=== PATIENT | male | born 1965 | race Caucasian/White ===

== ENCOUNTER 2024-01-13 01:06 | Day surgery (SDC) | payer MEDICARE, MEDICAID, SELFPAY ==
[2023-12-30 15:55] VITALS: BMI 27.1
--- NOTE | 2024-01-04 09:02 | PC.NURSE ---
Spoke with patients sister Evelin (with Patients permission) regarding medication ELIQUIS. SHE verbalizes understanding that the last dose of ELIQUIS is to be taken on 01/10/2024 and the Endoscopist will instruct them when to restart after the procedure.
--- NOTE | 2024-01-11 10:29 | PC.NURSE ---
Patient called regarding upcoming procedure. Reviewed preop instructions, appointment times, and procedure prep.
--- NOTE | 2024-01-12 12:16 | P.HP_ITS ---
History of Present Illness History of Present Illness Consent: Risks, benefits, and alternatives have been discussed and questions answered. Patient agrees to proceed with procedure. Chief complaint: neoplasm screening Narrative: David Tarango is a 59 year old male referred for colon cancer screening. there is a family history of colon cancer. He himself had renal cell cancer removed about 6 months ago, following which he developed pulmonary emboli as we ll as bleeding at the surgical site. Review of Systems Review of Systems: All systems reviewed & are unremarkable except as noted in HPI and below PMFSH Past Medical History Medical History BPH (benign prostatic hyperplasia) Chronic low back pain Pulmonary emboli Surgical History Surgical History H/O partial nephrectomy Family History Family History Other Carcinoma of colon Depression Diabetes mellitus Heart disease Hypertension Lung cancer Thyroid disease Social History Social History Smoking status: Never smoker Second hand tobacco smoke exposure: No Alcohol intake: never Substance use: never Substance use type: does not use Lack of Transportation: No Lack of Food: Never True Current Housing: I Have Housing Concerned About Future Housing: No Difficulty Paying Gas/Electric Bills: No Difficulty Paying for Meds: No Currently Unemployed: Decline to Answer Education: High School Diploma/GED Difficulty w/ Childcare or Family Care: No Living arrangements: alone Occupation/Education: other Additional occupation/education comments: on disability Gender identity (if verbalized by the patient): Male Sexual Orientation (if Verbalized by the Patient): Straight or Heterosexual Spiritual care concerns: No Agree to blood products: Yes Meds Home Medications and Allergies Home Medications Medication Instructions Recorded Confirmed Type finasteride 5 mg tablet 5 mg PO DAILY #30 tabs 09/10/23 01/13/24 Rx tamsulosin 0.4 mg capsule (Flomax) 0.4 mg PO QHS #30 caps 09/10/23 01/13/24 Rx apixaban 5 mg tablet (Eliquis) 5 mg PO BID #60 tabs 10/31/23 01/13/24 Rx trazodone 50 mg tablet 50 mg PO QHS insomnia 12/30/23 01/13/24 History Allergies Allergy/AdvReac Type Severity Reaction Status Date / Time No Known Allergies Allergy Mild Verified 01/13/24 06:33 Exam Resp: Auscultation: clear to auscultation bilaterally Cardio: Rate: regular rate Rhythm: regular rhythm GI: GI Palp: Yes Soft to palpation and No Tenderness to palpation present (GI) Assessment and Plan Assessment and plan (1) Colon cancer screening: Code(s): Z12.11 - Encounter for screening for malignant neoplasm of colon Status: Acute Assessment and Plan: Colonoscopy with possible biopsy or polypectomy or cautery or injection of substances.
--- NOTE | 2024-01-13 06:25 | P.PNAN_ITS ---
Anes - Initial Pre Proc Eval Procedure: Operation Date: 01/13/24 07:30 Proposed Procedures p Screening Colonoscopy - David Purdy MD Date/Time: 01/13/24 06:25 Surgeon: David Purdy MD Pre Op Diagnosis: neoplasm screening Patient Data Age: 59 Gender: M Height: 1.83 m Weight: 91 kg Allergies Allergy/AdvReac Type Severity Reaction Status Date / Time No Known Allergies Allergy Mild Verified 12/30/23 15:54 Home Medications Medication Instructions Recorded Confirmed Type finasteride 5 mg tablet 5 mg PO DAILY #30 tabs 09/10/23 12/30/23 Rx tamsulosin 0.4 mg capsule (Flomax) 0.4 mg PO QHS #30 caps 09/10/23 12/30/23 Rx apixaban 5 mg tablet (Eliquis) 5 mg PO BID #60 tabs 10/31/23 12/30/23 Rx trazodone 50 mg tablet 50 mg PO QHS insomnia 12/30/23 12/30/23 History Patient hx anesthesia problems: none Family hx anesthesia problems: none Results Review: All pre-operative results and documents have been reviewed as part of the pre- operative evaluation. [facility] Past Medical History Medical History BPH (benign prostatic hyperplasia) Chronic low back pain Pulmonary emboli Surgical History Surgical History H/O partial nephrectomy Family History Family History Other Carcinoma of colon Depression Diabetes mellitus Heart disease Hypertension Lung cancer Thyroid disease Social History Social History Smoking status: Never smoker Second hand tobacco smoke exposure: No Alcohol intake: never Substance use: never Substance use type: does not use Lack of Transportation: No Lack of Food: Never True Current Housing: I Have Housing Concerned About Future Housing: No Difficulty Paying Gas/Electric Bills: No Difficulty Paying for Meds: No Currently Unemployed: Decline to Answer Education: High School Diploma/GED Difficulty w/ Childcare or Family Care: No Living arrangements: alone Occupation/Education: other Additional occupation/education comments: on disability Gender identity (if verbalized by the patient): Male Sexual Orientation (if Verbalized by the Patient): Straight or Heterosexual Spiritual care concerns: No Agree to blood products: Yes Anes - Eval Final PreProcedure Day of Procedure 01/13/24 06:25 Patient weight: overweight Heart: regular rate and rhythm Lungs: clear to auscultation Airway: Mallampati scale class II Neurological: alert and oriented Last oral intake: >/= 8 hours ASA classification: III Emergent: no Anesthetic plan: proceed Anesthesia type and monitoring: general GIVS and standard monitoring Results Review: All pre-operative results and documents have been reviewed as part of the pre-operative evaluation. Informed Consent: The patient's anesthetic plan and its attendant risks and benefits were discussed with the patient/family/POA. Questions were solicited and answers provided to the satisfaction of the patient/family/POA.
[2024-01-13 06:35] VITALS: BP 126/82; PULSE 71; RESP 18; TEMP 36.6; O2SAT 98
[2024-01-13] MEDS: LACTATED RINGERS 1,000 ML 150 ML IV CONT (06:45)
[2024-01-13 07:54] VITALS: BP 114/81; PULSE 69; RESP 26; O2SAT 97
[2024-01-13 08:04] VITALS: BP 130/80; PULSE 59; RESP 17; O2SAT 99
[2024-01-13 08:14] VITALS: BP 130/81; PULSE 63; RESP 20; O2SAT 99
== END 2024-01-13 08:23 | disposition home or self-care (01) ==
PROVIDERS: PCP Family Medicine; Visit Provider Internal Medicine Gastroenterology
PROC: 0DJD8ZZ Inspection of Lower Intestinal Tract, Via Natural or Artificial Opening Endoscopic (ICD-10-PCS; CPT 45378; principal; 2024-01-13 07:30)
DX: Z12.11 Encounter for screening for malignant neoplasm of colon (principal); C18.7 Malignant neoplasm of sigmoid colon; Z80.0 Family history of malignant neoplasm of digestive organs; Z85.53 Personal history of malignant neoplasm of renal pelvis; Z86.711 Personal history of pulmonary embolism; Z79.01 Long term (current) use of anticoagulants
CPT/HCPCS: 45380; 45385; 45381; 88305; 88313; 88342; J2704; J7120

== ENCOUNTER 2024-02-26 12:11 | Outpatient (CLI) | payer MEDICARE, MEDICAID, SELFPAY ==
--- NOTE | ~2024-02-26 | CT_ITS ---
EXAMINATION: CTA chest PE protocol DATE: 02/26/2024 12:46 INDICATION: Pleurodynia. TECHNIQUE: Computed tomography angiography (CTA) of the chest was performed with 100 mL Omnipaque-350 intravenous contrast timed to evaluate the pulmonary arteries. Coronal maximum intensity projection 3D-reconstructions were created by the technologist. Automated exposure control and iterative reconst ruction technique were employed. The dose-length product was 451.96 mGy-cm. COMPARISON: None. FINDINGS: The lungs demonstrate mild atelectasis. Calcified right lung nodules and calcified right hi lar and mediastinal lymph nodes are consistent with old granulomatous disease. No pleural effusion. T he heart size is normal. No pericardial effusion. There is no pulmonary embolus. There are embolizati on coils in right kidney. There are changes of partial right nephrectomy with perinephric hematoma ve rsus fat necrosis. There is thoracic dextroscoliosis. There is mild chronic anterior wedging of multi ple thoracic vertebral bodies. IMPRESSION: 1. No pulmonary embolus. Reviewed, dictated and finalized at location A. IMPRESSION: 1. No pulmonary embolus.
[2024-02-26 12:43] LABS: Estimated Glomerular Filt Rate > 60
== END 2024-02-26 12:12 | disposition home or self-care (01) ==
PROVIDERS: PCP Family Medicine; Visit Provider Family Medicine
DX: R07.81 Pleurodynia (principal); Z86.711 Personal history of pulmonary embolism; C20 Malignant neoplasm of rectum; Z85.528 Personal history of other malignant neoplasm of kidney
CPT/HCPCS: 71275; Q9967

== ENCOUNTER → 2024-08-09 11:38 | Outpatient (REF) | payer MEDICARE, MEDICAID, SELFPAY | LOC: ANHLAB 11:38 | PROVIDERS: PCP Family Medicine; Visit Provider Plastic Surgery | DX: D22.22 Melanocytic nevi of left ear and external auricular canal (principal) | CPT/HCPCS: 88305 ==

== ENCOUNTER 2024-09-15 12:17 | Outpatient (CLI) | payer MEDICARE, MEDICAID, SELFPAY ==
--- NOTE | ~2024-09-15 | PE_ITS ---
EXAMINATION: PET skull to mid thigh DATE: 09/15/2024 14:48 INDICATION: Lung nodule. Other specified personal risk factor. TECHNIQUE: Blood glucose level was 119 mg/dL. 9.779 mCi of 18-fluorodeoxyglucose (18-FDG) was adminis tered i.v. Low dose computed tomography (CT) images were acquired from the base of the brain to the p roximal thighs for attenuation correction and anatomic localization. Automated exposure control was e mployed. Dose-length product (DLP) was 1126 mGy-cm. Positron emission tomography (PET) images were ac quired in the same distribution. COMPARISON: Chest CT 02/26/2024 FINDINGS: Head/neck: There are no pathologically enlarged lymph nodes. Chest: The lungs demonstrate mild atelectasis. Calcified right hilar and mediastinal lymph nodes are consistent with old granulomatous disease. No pleural effusion. The heart size is normal. No pericard ial effusion. There is a fracture of right eighth rib with callus formation and increased activity. Abdomen/pelvis/proximal thighs: The liver, gallbladder, spleen, pancreas, and right adrenal gland are normal. There is a 19 mm mass in left adrenal gland measuring low attenuation, consistent with an ad enoma. Left kidney is normal. There are changes of partial right nephrectomy with chronic fat necrosi s adjacent to the right kidney. There are embolization coils at the hilum of the right kidney. The pr ostate is moderately enlarged. There is a left inguinal hernia containing fat. There is an anastomosi s in the sigmoid colon. There are no dilated loops of bowel. There are no pathologically enlarged lym ph nodes. There is no free intraperitoneal fluid. There is no osseous malignancy. IMPRESSION: 1. No specific evidence of malignancy. 2. Healing right eighth rib fracture. Reviewed, dictated and finalized at location B.
[2024-09-15 12:35] LABS: Glucose Point of Care 119 mg/dl (65-105)
== END 2024-09-15 12:18 | disposition home or self-care (01) ==
PROVIDERS: PCP Family Medicine; Visit Provider Family Medicine
DX: R91.1 Solitary pulmonary nodule (principal); N28.89 Other specified disorders of kidney and ureter; Z91.89 Other specified personal risk factors, not elsewhere classified; S22.31XD Fracture of one rib, right side, subsequent encounter for fracture with routine healing; X58.XXXD Exposure to other specified factors, subsequent encounter
CPT/HCPCS: 78815; A9552

== ENCOUNTER 2025-01-25 13:00 | Outpatient (CLI) | payer MEDICARE, MEDICAID, SELFPAY ==
--- NOTE | ~2025-01-25 | CT_ITS ---
CT Scan of the Chest without Contrast: Clinical Indication: Pulmonary nodule Technique: Contiguous sections were acquired throughout the chest without intravenous contrast. Dose reduction technique was used on this scan by utilizing automated exposure control and iterative recon struction technique. The dose-length product (DLP) was 282.36 mGy-cm. COMPARISON: 11/25/2024 Findings: There is no evidence of any significant mediastinal, hilar or axillary lymphadenopathy. The mediastin al soft tissues appear normal. There is no evidence of pleural or pericardial effusion. Grouped small groundglass nodules in the right middle lobe are similar to prior exam. Images through the upper abdomen reveal stable left adrenal adenoma. Stable probable postoperative ch jay of the right kidney, incompletely evaluated on noncontrast exam. Stable mild compression deformi ties of T8 and T12. Impression: Stable grouped subcentimeter groundglass nodules in the right middle lobe, which could reflect focal infectious/inflammatory process. Reviewed, dictated and finalized at location . Impression: Stable grouped subcentimeter groundglass nodules in the right middle lobe, whic h could reflect focal infectious/inflammatory process.
--- OUTSIDE RECORDS SUMMARY | 2025-01-25 14:23 | XMS_ITS | Clinical Summary ---
Author Organization [facility] Address [address] [place] [address] Care Team Providers Care Media Marketing Specialist Name Role Phone Shefali Gavin MD Primary Care Provider [phone] Allergies No known active allergies Medications finasteride (PROSCAR) 5 MG tablet Take 1 tablet (5 mg total) by mouth daily. 08/05/2024 Active tamsulosin (FLOMAX) 0.4 MG Cap Take 1 capsule (0.4 mg total) by mouth nightly at bedtime. 08/04/2024 Active Active Problems Problem Noted Date Diagnosed Date Nausea and vomiting 05/31/2023 Nocturia 11/18/2019 Degenerative joint disease of foot 11/05/2017 Hyperlipidemia 08/04/2017 Vitamin B12 deficiency 04/05/2017 Cervicalgia 09/25/2016 Bulging lumbar disc 06/03/2016 Lumbar radiculopathy 06/03/2016 Neuropathy 03/12/2016 Gastroesophageal reflux disease 02/12/2016 Family History Medical History Relation Comments Diabetes type II Father Heart Disease, Lung Cancer Mother Relation Status Comments Father Mother Social History Tobacco Use Types Packs/Day Years Used Date Smoking Tobacco: Never Smokeless Tobacco: Never Tobacco Cessation:Counseling Given: Not Answered Alcohol Use Standard Drinks/Week Comments No 0 (1 standard drink = 0.6 oz pur e alcohol) Humiliation, Afraid, Rape, and Kick questionnair e Answer Date Recorded Within the last year, have y ou been afraid of your partner or ex-partner? No 06/01/2023 Within the last year, have y ou been humiliated or emotionally abused in other ways by your partner or ex-partner? No Within the last year, have y ou been kicked, hit, slapped, or otherwise physically hurt by your partner or ex-partner? No 06/01/2023 Within the last year, have y ou been raped or forced to have any kind of sexual activity by your partner or ex-partner? No 06/01/2023 AUDIT-C Answer Date Recorded Frequency of Alcohol Consumption Never 11/18/2019 Average Number of Drinks Not on file 020 Frequency of Binge Drinking Not on file 01/2020 Overall Financial Resource Strain (CARDIA) Answe r Date Recorded How hard is it for you to pa y for the very basics like food, housing, medical care, and heating? Not hard at all 06/01/2023 [facility] [place] of Occupat ional Health - Occupational Stress Questionnaire Answer Date Recorded Do you feel stress - tense, restless, nervous, or anxious, or unable to sleep at night because your mind is troubled all the time - these days? Only a little 06/01/2023 Hunger Vital Sign Answer Date Recorded Within the past 12 months, y ou worried that your food would run out before you got the money to buy more. Never true 06/01/20 23 Within the past 12 months, t he food you bought just didn't last and you didn't have money to get more. Never true 06/01/2023 PRAPARE - Transportation Answer Date Re corded In the past 12 months, has l ack of transportation kept you from medical appointments or from getting medications? No 05/16 In the past 12 months, has l ack of transportation kept you from meetings, work, or from getting things needed for daily living? No 06/01/2023 Housing Stability Vital Sign Answer Evgeny e Recorded In the last 12 months, was t here a time when you were not able to pay the mortgage or rent on time? No 06/01/2023 In the last 12 months, how many places have you lived? 1 06/01/2023 In the last 12 months, was t here a time when you did not have a steady place to sleep or slept in a retirement (including now)? No 06/01/2023 Housing Stability Vital Sign Answer Evgeny e Recorded In the last 12 months, was t here a time when you were not able to pay the mortgage or rent on time? No 06/01/2023 Number of Times Moved in the Last Year Not on fi le 06/01/2023 Homeless in the Last Year Not on file 2022 Education Answer Date Recorded What is the highest level of school you have completed or the highest degree you have received? High school graduate 11/18/2019 Sex and Gender Information Value Date Recorded Sex Assigned at Not on file Legal Sex Male 6:44 PM CDT Gender Identity Not on file Sexual Orientation Not on file Last Filed Vital Signs Vital Sign Reading Time Taken Comments Blood Pressure 135/90 08/29/2024 12:00 PM CDT Pulse 65 08/29/2024 12:00 PM CDT Temperature 36.4 C (97.6 F) 08/29/2024 12:00 PM CDT Respiratory Rate 16 08/29/2024 12:0 0 PM CDT Oxygen Saturation 97% 08/29/2024 12: 00 PM CDT Inhaled Oxygen Concentration - - Weight 90.2 kg (198 lb 13.7 oz) 08/29/2024 8:53 AM CDT Height 182.9 cm (6') 08/29/2024 8:53 AM CDT Body Mass Index 26.97 08/29/2024 8:53 AM CDT Plan of Treatment Health Maintenance Due Date Last Done Comments Colorectal Cancer Screening Colonoscopy (10 Years) 1964 Annual Physical 1967 Hepatitis C 1982 DTaP, Tdap and Td Vaccines ( 1 - Tdap) 1983 Zoster Vaccines (1 of 2) 2014 COVID-19 Vaccine ( - 2023-2 5 season) 2024 Influenza Adult (#1) 2024 RSV Immunization or 60+ Years (1 - 1-dose 75+ series) 2039 Meningococcal B Vaccine Aged Out No l onger eligible based on patient's age to complete this topic Meningococcal Vaccine Aged Out No jaime reji eligible based on patient's age to complete this topic Pneumococcal Vaccine: Pediat rics (0 to 5 Years) and At-Risk Patients (6 to 64 Years) Aged Out No longer eligible b ased on patient's age to complete this topic RSV Immunizations Under 20 Months Aged Out No longer eligible based on patient's age to complete this topic Goals Goal Patient Goal Type Associated Problems Recent Progress Patient-Stated? Author Patient will return to prior living situation and remain independent in ADLs upon discharge from hospital Lifestyle Cris Marinelli, RN Insurance MEDICAID [employer] Advance Directives * Full Code (Latest Code Status on File) Date Activated Date Inactivated Comments 05/31/2023 5:26 PM 06/02/2023 10:20 PM Care Teams Media Marketing Specialist Relationship Specialty Start Date End Date Shefali Gavin MD [address] [place] [address] PCP - General FAMILY PRACTICE 06/19/23
--- OUTSIDE RECORDS SUMMARY | 2025-01-25 14:23 | XMS_ITS | Clinical Summary ---
Author Organization [facility] Address [address] [place] [address] Care Team Providers Care Director Phone Name Role Phone Shefali Gavin MD Primary Care Provider [phone] Source Comments [facility],non-owned Affiliates and Associated Physician Practices is amultiple site organization consisting of ambulatory clinics and hospital sitesin [place], [place], [place] and [place]. This disclosure is being madepursuant to the Care Everywhere program and may not contain all information available regarding this patient. Last updated 18.[facility] Allergies No known active allergies Medications * Be aware that medications may not be up to date on this document. Alwaysverify current medications with the patient. Medication Sig Dispensed Refills Start Date End Date Status tamsulosin (Flomax) 0.4 MG capsule Take 1 (one) capsule by mouth at bedtime 07/04/2023 Active finasteride (Proscar) 5 MG tablet Take 1 (one) tablet by mouth once daily 07/04/2023 Active pantoprazole EC (Protonix) 40 MG tablet Take 1 (one) tablet by mouth once daily for 30 days 30 tablet 09/02/2023 Active traZODone (Desyrel) 50 MG tablet TAKE 1 TABLET BY MOUTH EVERY DAY AT BEDTIME NEEDED FOR INSOMNIA 04/07/2024 Active senna (Senokot) 8.6 MG tablet Take 1 (one) tablet by mouth once daily 30 tablet 06/17/2024 Active docusate sodium (Colace) 50 MG capsule Take 1 (one) capsule by mouth once daily 30 capsule 06/17/2024 Active cyclobenzaprine (Flexeril) 10 MG tablet Take 1 (one) tablet by mouth 3 times daily as needed for Muscle Spasms 30 tablet 06/17/2024 Active ketorolac (Toradol) 10 MG tablet Take 1 (one) tablet by mouth every 6 hours as needed for Pain 30 tablet 06/17/2024 Active amLODIPine (Norvasc) 5 MG tablet Take 1 (one) tablet by mouth once daily 60 tablet 06/17/2024 Active Active Problems Problem Noted Date Diagnosed Date Cancer of sigmoid colon 06/08/2024 Clear cell carcinoma of right kidney 08/31/2023 Multiple subsegmental pulmon lynnette emboli without acute cor pulmonale 08/23/2023 Post-operative hemoglobin drop 08/21/2023 Intra-abdominal bleeding 08/21/2023 Anemia associated with acute blood loss 08/21/20 23 Renal mass 08/20/2023 Nocturia 11/18/2019 08/23/2023 Hyperlipidemia 08/04/2017 08/23/2023 Backache 09/25/2016 Neck pain 09/25/2016 Lumbar radiculopathy 06/03/2016 08/23/2023 Neuropathy 03/12/2016 08/23/2023 Gastroesophageal reflux disease 02/12/2016 08/23/2023 Family History Medical History Relation Name Comments Cancer - Colon Father Cancer - Lung Mother Relation Name Status Comments Father Mother Social History Tobacco Use Types Packs/Day Years Used Date Smoking Tobacco: Never Smokeless Tobacco: Never Tobacco Cessation:Counseling Given: No Alcohol Use Standard Drinks/Week Comments Not Currently 0 (1 standard drink = 0.6 oz pur e alcohol) AUDIT-C Answer Date Recorded Q1: How often do you have a drink containing alcohol? Never 06/08/2024 Q2: How many drinks containi ng alcohol do you have on a typical day when you are drinking? Patient does not drink Q3: How often do you have si x or more drinks on one occasion? Never 06/08/2024 Overall Financial Resource Strain (CARDIA) Answe r Date Recorded How hard is it for you to pa y for the very basics like food, housing, medical care, and heating? Patient declined 06/08/2024 [facility] of Occupat ional Health - Occupational Stress Questionnaire Answer Date Recorded Do you feel stress - tense, restless, nervous, or anxious, or unable to sleep at night because your mind is troubled all the time - these days? Patient declined 06/08/2024 Hunger Vital Sign Answer Date Recorded Within the past 12 months, y ou worried that your food would run out before you got the money to buy more. Patient declined Within the past 12 months, t he food you bought just didn't last and you didn't have money to get more. Patient declined PRAPARE - Transportation Answer Date Re corded In the past 12 months, has l ack of transportation kept you from medical appointments or from getting medications? Patient declined 06/08/2024 In the past 12 months, has l ack of transportation kept you from meetings, work, or from getting things needed for daily living? Patient declined 06/08/2024 Housing Stability Vital Sign Answer Evgeny e Recorded In the last 12 months, was t here a time when you were not able to pay the mortgage or rent on time? Patient declined 06/08/20 In the last 12 months, how many places have you lived? 1 06/08/2024 In the last 12 months, was t here a time when you did not have a steady place to sleep or slept in a fci (including now)? Patient declined 06/08/2024 Sex and Gender Information Value Date Recorded Sex Assigned at Not on file Gender Identity Not on file Sexual Orientation Not on file Last Filed Vital Signs Vital Sign Reading Time Taken Comments Blood Pressure 125/87 09/08/2024 12:50 PM CDT Pulse 79 09/08/2024 12:50 PM CDT Temperature 36.3 C (97.3 F) 09/08/2024 12:50 PM CDT Respiratory Rate 18 09/08/2024 12:50 PM CDT Oxygen Saturation 98% 09/08/2024 12:50 PM CDT Inhaled Oxygen Concentration - - Weight 90.3 kg (199 lb) 09/08/2024 12:50 PM CDT Height 182.9 cm (6') 09/08/2024 12:50 PM CDT Body Mass Index 26.99 09/08/2024 12:50 PM CDT Plan of Treatment Health Maintenance Due Date Last Done Comments COLOGUARD (AGES 45-75) - COLON CA SCREENING 1964 COLON MONITORING 1964 COLONOSCOPY - COLON CA SCREENING 1964 CT COLONOGRAPHY - COLON CA SCREENING 1964 Colorectal Cancer Screening 1964 FIT - COLON CA SCREENING 1964 FLEX SIG - COLON CA SCREENING 1964 LIPID TESTING 1964 HIV SCREENING 1979 HEPATITIS C SCREENING 01/01/1982 DTAP/TDAP/TD VACCINES (1 - Tdap) 1983 PNEUMOCOCCAL VACCINE 50+ (1 of 1 - PCV) 2014 ZOSTER VACCINE (1 of 2) 2014 COVID-19 VACCINE (1 - 2023- season) 2024 INFLUENZA VACCINE (#1) 2024 DEPRESSION SCREENING 11/16/2024 MEDICARE AWV CALENDAR YEAR 2024 SCREENING FOR DIABETES 06/17/2027 , 06/16/2024, 06/15/2024, Additional history exists Respiratory Syncytial Virus (RSV) Vaccine Pt: or over 60 yrs (1 - 1-dose 75+ series) 2039 HEPATITIS B VACCINE Aged Out No longe r eligible based on patient's age to complete this topic HIB VACCINE Aged Out No longer eligi ble based on patient's age to complete this topic HPV VACCINE Aged Out No longer eligi ble based on patient's age to complete this topic MENINGOCOCCAL (Group B) VACCINE SHARED DECISION-MAKING Aged Out No longer eligible based on patient's age to complete this topic MENINGOCOCCAL GROUPS A/C/Y/W VACCINE Aged Out No longer eligible based on patient's age to complete this topic Procedures Procedure Name Priority Date/Time Associated Diagnosis Comments BASIC METABOLIC PANEL (CALCIUM TOTAL) AM Draw 06/17/2024 12:11 AM CDT from Last 3 Months or Most Recently Relevant to Health Maintenance Results * (ABNORMAL) BASIC METABOLIC PANEL (CALCIUM TOTAL) (06/17/2024 12:11 AM CDT) BUN 22 7 - 26 mg/dL 06/17/2024 1:58 AM CDT [facility] Creatinine 0.94 0.71 - 1.16 mg/dL 06/17/2024 1:58 AM CDT [facility] Sodium 135(L) 136 - 145 mmol/L 06/17/2024 1:58 AM [facility] Potassium 3.4(L) 3.5 - 4.5 mmol/L 06/17/2024 1:58 AM [facility] Chloride 103 98 - 107 mmol/L 06/17/2024 1:58 AM [facility] CO2 24 22 - 29 mmol/L 06/17/2024 1:58 AM [facility] Glucose 132(H) 70 - 115 mg/dL 06/17/2024 1:58 AM [facility] Calcium 8.6 8.4 - 10.2 mg/dL 06/17/2024 1:58 AM [facility] Anion Gap 8 6 - 16 06/17/2024 1:58 AM [facility] BUN/Creatinine Ratio 23 7 - 23 06/17/2024 1:58 AM [facility] Osmolality Calculated 285 275 - 295 mOsm/kg 06/17/2024 1:58 AM [facility] eGFR by CKD-EPI >90 >=90 mL/min/1.7 3 m2 06/17/2024 1:58 AM [facility] Blood BLOOD SPECIMEN / Unknown Lab Venipuncture / Unknown 06/17/2024 12:11 AM CDT 06/17/2024 1:[address] 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
--- OUTSIDE RECORDS SUMMARY | 2025-01-25 14:23 | XMS_ITS | Encounter Summary ---
Author Organization [facility] Address [address] [place] [address] Care Team Providers Care Licensed Electrician Name Role Phone Shefali Gavin MD Primary Care Provider [phone] Reason for Visit * Reason Comments Med Change Request Encounter Details Date Type Department Care Team (Late st Contact Info) Description 06/17/2024 Refill [facility] [address] [place] [id number] Marian Andrade MD [address] [facility] [address] [place] [id number] Med Change Request Social History Tobacco Use Types Packs/Day Years Used Date Smoking Tobacco: Never Smokeless Tobacco: Never Alcohol Use Standard Drinks/Week Comments Not Currently [...] medical care, and heating? Patient declined 06/08/2024 [facility] [place] of Occupat ional Health - Occupational Stress [...] on file Sexual Orientation Not on file documented as of this encounter Functional Status Functional Status Response Date of Assess ment Is person deaf or have serious hearing difficult y? No 06/08/2024 Is person blind or have serious difficulty seein g? No 06/08/2024 Does person have serious dif ficulty walking/climbing stairs? No 06/08/2024 Does person have difficulty dressing/bathing? No 06/08/2024 Does person have difficulty doing errands alone? No 06/08/2024 Cognitive Status Response Date of Assessm ent Does person have difficulty concentrating/remembering/making decisions? No 06/08/2024 documented as of this encounter Plan of Treatment Not on file documented as of this encounter Visit Diagnoses Not on filedocumented in this encounter Care Teams Licensed Electrician Relationship Specialty Start Date End Date Shefali Gavin MD [address] [place] [address] PCP - General Family Medicine 07/15/23 documented as of this encounter
--- OUTSIDE RECORDS SUMMARY | 2025-01-25 14:23 | XMS_ITS ---
Author Organization [facility] Address [address] [facility] [place] [address] Care Team Providers Care Project Designer Name Role Phone Shefali Gavin MD Primary Care Provider [phone] Active Problems Problem Noted Date Diagnosed Date [...] 03/12/2016 08/23/2023 Gastroesophageal reflux disease 02/12/2016 08/23/2023 Current Oncology Plans No current plan information found. Past Plans No past plan information found. Radiation Treatments * No radiation treatments are documented for this patient in [facility]. Treatments may have been administered in another system. Lifetime Dose Tracking * Chemical Lifetime Dose Automatic Entry Manual Entr y Dose Length Product 6,829.36 mGy-cm 6,829.36 mGy-cm 0 mGy-cm
--- OUTSIDE RECORDS SUMMARY | 2025-01-25 14:23 | XMS_ITS | Referral Summary ---
Author Organization [facility] [employer] Address [address] [facility] [place] [address] Care Team Providers Care Bag Sealer Name Role Phone Shefali Gavin MD Primary Care Provider [phone] Source Comments [facility] [employer],non-owned Affiliates and Associated Physician Practices is amultiple site organization consisting of ambulatory clinics and hospital sitesin [place], [place], [place] and [place]. This disclosure is being madepursuant to the Care Everywhere program and may not contain all information available regarding this patient. Last updated 18.[facility] [employer] Allergies No known active allergies Medications * [...] 03/12/2016 08/23/2023 Gastroesophageal reflux disease 02/12/2016 08/23/2023 Social History Tobacco Use Types Packs/Day Years [...] medical care, and heating? Patient declined 06/08/2024 [facility] [place] of Occupat ional Health - Occupational Stress [...] or slept in a retirement (including now)? Patient declined 06/08/2024 Sex and [...] Mass Index 26.99 09/08/2024 12:50 PM CDT Functional Status Functional Status Response Date of [...] person have difficulty concentrating/remembering/making decisions? No 06/08/2024 Plan of Treatment Not on file Procedures Procedure Name Priority Date/Time Associated Diagnosis Comments BASIC METABOLIC PANEL (CALCIUM TOTAL) AM Draw 06/17/2024 12:11 AM CDT from Last 3 Months or Most Recently Relevant to Health Maintenance Results * (ABNORMAL) BASIC METABOLIC PANEL (CALCIUM TOTAL) (06/17/2024 12:11 AM CDT) BUN 22 7 - 26 mg/dL 06/17/2024 1:58 AM [facility] Creatinine 0.94 0.71 - 1.16 mg/dL 06/17/2024 1:58 AM [facility] Sodium 135(L) 136 - 145 mmol/L 06/17/2024 1:58 AM [facility] Potassium 3.4(L) 3.5 - 4.5 mmol/L 06/17/2024 1:58 AM [facility] Chloride 103 98 - 107 mmol/L 06/17/2024 1:58 AM [facility] CO2 24 22 - 29 mmol/L 06/17/2024 1:58 AM [facility] Glucose 132(H) 70 - 115 mg/dL 06/17/2024 1:58 AM [facility] Calcium 8.6 8.4 - 10.2 mg/dL 06/17/2024 1:58 AM [facility] Anion Gap 8 6 - 16 06/17/2024 1:58 AM [facility] BUN/Creatinine Ratio 23 7 - 23 06/17/2024 1:58 AM [facility] Osmolality Calculated 285 275 - 295 mOsm/kg 06/17/2024 1:58 AM [facility] eGFR by CKD-EPI >90 >=90 mL/min/1.7 3 m2 06/17/2024 1:58 AM [facility] Blood BLOOD SPECIMEN / Unknown Lab Venipuncture / Unknown 06/17/2024 12:11 AM CDT 06/17/2024 1:28 AM CDT Brenda Peterson MD LAB - CHEMISTRY OR DERABLES [facility] [address] [place] [address], [facility] [phone] from Last 3 Months or Most Recently Relevant to Health Maintenance Advance Directives Documents on File Type Date Recorded 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
--- OUTSIDE RECORDS SUMMARY | 2025-01-25 14:23 | XMS_ITS | Patient Health Summary ---
Author Organization [facility] Address [address] [place] [address] Care Team Providers Care Loan Funder Name Role Phone Shefali Gavin MD Primary Care Provider [phone] Note from [facility],non-owned Affiliates and Associated Physician Practices is amultiple site organization consisting of ambulatory clinics and hospital sitesin [place], [place], [place] and [place]. This disclosure is being madepursuant to the Care Everywhere program and may not contain all information available regarding this patient. Last updated 18.[facility] Allergies No known active allergies Medications * Be aware that medications may not be up to date on this document. Alwaysverify current medications with the patient. * tamsulosin (Flomax) 0.4 MG capsule(Started 07/04/2023) Take 1 (one) capsule by mouth at bedtime * finasteride (Proscar) 5 MG tablet(Started 07/04/2023) Take 1 (one) tablet by mouth once daily * pantoprazole EC (Protonix) 40 MG tablet(Started 09/02/2023) Take 1 (one) tablet by mouth once daily for 30 days * traZODone (Desyrel) 50 MG tablet(Started 04/07/2024) TAKE 1 TABLET BY MOUTH EVERY DAY AT BEDTIME NEEDED FOR INSOMNIA * senna (Senokot) 8.6 MG tablet(Started 06/17/2024) Take 1 (one) tablet by mouth once daily * docusate sodium (Colace) 50 MG capsule(Started 06/17/2024) Take 1 (one) capsule by mouth once daily * cyclobenzaprine (Flexeril) 10 MG tablet(Started 06/17/2024) Take 1 (one) tablet by mouth 3 times daily as needed for Muscle Spasms * ketorolac (Toradol) 10 MG tablet(Started 06/17/2024) Take 1 (one) tablet by mouth every 6 hours as needed for Pain * amLODIPine (Norvasc) 5 MG tablet(Started 06/17/2024) Take 1 (one) tablet by mouth once daily Active Problems Problem Noted Date Diagnosed Date [...] medical care, and heating? Patient declined 06/08/2024 [facility] - Occupational Stress [...] or rent on time? Patient declined 06/08/20 24 In the last 12 months, how many places have you lived? 1 06/08/2024 In the last 12 months, was t here a time when you did not have a steady place to sleep or slept in a detention (including now)? Patient declined 06/08/2024 Sex and [...] Mass Index 26.99 09/08/2024 12:50 PM CDT Procedures * PHOSPHORUS BLOOD(Performed 06/17/2024) * MAGNESIUM BLOOD(Performed 06/17/2024) * BASIC METABOLIC PANEL (CALCIUM TOTAL)(Performed 06/17/2024) * CBC W AUTO DIFFERENTIAL(Performed 06/17/2024) * PHOSPHORUS BLOOD(Performed 06/16/2024) * MAGNESIUM BLOOD(Performed 06/16/2024) * BASIC METABOLIC PANEL (CALCIUM TOTAL)(Performed 06/16/2024) * CBC W AUTO DIFFERENTIAL(Performed 06/16/2024) * PHOSPHORUS BLOOD(Performed 06/15/2024) * MAGNESIUM BLOOD(Performed 06/15/2024) * BASIC METABOLIC PANEL (CALCIUM TOTAL)(Performed 06/15/2024) * CBC W AUTO DIFFERENTIAL(Performed 06/15/2024) * CT ABDOMEN PELVIS W CONTRAST(Performed 06/14/2024) Performed for Cancer of sigmoid colon (HCC) * PHOSPHORUS BLOOD(Performed 06/14/2024) * MAGNESIUM BLOOD(Performed 06/14/2024) * BASIC METABOLIC PANEL (CALCIUM TOTAL)(Performed 06/14/2024) * CBC W AUTO DIFFERENTIAL(Performed 06/14/2024) * XR ABDOMEN KUB PORTABLE(Performed 06/13/2024) Performed for Cancer of sigmoid colon (HCC) * PHOSPHORUS BLOOD(Performed 06/13/2024) * MAGNESIUM BLOOD(Performed 06/13/2024) * BASIC METABOLIC PANEL (CALCIUM TOTAL)(Performed 06/13/2024) * CBC W AUTO DIFFERENTIAL(Performed 06/13/2024) * PHOSPHORUS BLOOD(Performed 06/12/2024) * MAGNESIUM BLOOD(Performed 06/12/2024) * BASIC METABOLIC PANEL (CALCIUM TOTAL)(Performed 06/12/2024) * CBC W AUTO DIFFERENTIAL(Performed 06/12/2024) * XR ABDOMEN KUB PORTABLE(Performed 06/11/2024) Performed for Cancer of sigmoid colon (HCC) * PHOSPHORUS BLOOD(Performed 06/11/2024) * MAGNESIUM BLOOD(Performed 06/11/2024) * BASIC METABOLIC PANEL (CALCIUM TOTAL)(Performed 06/11/2024) * CBC W AUTO DIFFERENTIAL(Performed 06/11/2024) * XR ABDOMEN KUB PORTABLE(Performed 06/11/2024) Performed for Cancer of sigmoid colon (HCC) * XR ABDOMEN KUB PORTABLE(Performed 06/10/2024) Performed for Cancer of sigmoid colon (HCC) * MAGNESIUM BLOOD(Performed 06/10/2024) * RENAL FUNCTION PANEL(Performed 06/10/2024) * CBC W/O DIFFERENTIAL(Performed 06/10/2024) * PT EVAL AND TREAT(Performed 06/09/2024) * OT EVAL AND TREAT(Performed 06/09/2024) * PHOSPHORUS BLOOD(Performed 06/09/2024) Performed for Cancer of sigmoid colon (HCC) * MAGNESIUM BLOOD(Performed 06/09/2024) Performed for Cancer of sigmoid colon (HCC) * BASIC METABOLIC PANEL (CALCIUM TOTAL)(Performed 06/09/2024) Performed for Cancer of sigmoid colon (HCC) * CBC W AUTO DIFFERENTIAL(Performed 06/09/2024) Performed for Cancer of sigmoid colon (HCC) * OT EVAL AND TREAT(Performed 06/08/2024) * PT EVAL AND TREAT(Performed 06/08/2024) * PATHOLOGY TISSUE(Performed 06/08/2024) Performed for Cancer of sigmoid colon (HCC) * PERIPHERAL IV NOTE(Performed 06/08/2024) * ENDOTRACHEAL TUBE NOTE(Performed 06/08/2024) * IL CLAM SHOVEL OPERATOR RQR USE ROBOTIC SURG SYS(Performed 06/08/2024) Performed for Cancer of sigmoid colon (HCC) * TYPE + SCREEN PANEL(Performed 06/08/2024) Performed for Pre-op evaluation * TYPE + SCREEN PANEL(Performed 05/27/2024) Performed for Pre-op evaluation * CBC W AUTO DIFFERENTIAL(Performed 05/27/2024) Performed for Pre-op evaluation * BASIC METABOLIC PANEL (CALCIUM TOTAL)(Performed 05/27/2024) Performed for Pre-op evaluation * CULTURE URINE(Performed 05/27/2024) Performed for Right renal mass, Pre-op testing * IL SIGMOIDOSCOPY,DIAGNOSTIC(Performed 05/06/2024) Performed for Rectal cancer (HCC) * ENDOSCOPY, PROCTOSIGMOID(Performed 05/06/2024) * MRI PELVIS WWO CONTRAST(Performed 03/31/2024) Performed for Rectal cancer (HCC) * CT CHEST ABDOMEN W CONTRAST(Performed 03/31/2024) Performed for Rectal cancer (HCC) * CREATININE - POCT INTERFACED(Performed 03/31/2024) * CARDIAC RHYTHM STRIP ORDER(Performed 09/02/2023) * BASIC METABOLIC PANEL (CALCIUM TOTAL)(Performed 09/01/2023) Performed for Renal mass * CBC W AUTO DIFFERENTIAL(Performed 09/01/2023) Performed for Renal mass * MAGNESIUM BLOOD(Performed 08/31/2023) * BASIC METABOLIC PANEL (CALCIUM TOTAL)(Performed 08/31/2023) Performed for Renal mass * CBC W AUTO DIFFERENTIAL(Performed 08/31/2023) Performed for Renal mass * BASIC METABOLIC PANEL (CALCIUM TOTAL)(Performed 08/30/2023) Performed for Renal mass * CBC W AUTO DIFFERENTIAL(Performed 08/30/2023) Performed for Renal mass * PT EVAL AND TREAT(Performed 08/29/2023) * XR ABDOMEN KUB(Performed 08/29/2023) Performed for Slow transit constipation * BASIC METABOLIC PANEL (CALCIUM TOTAL)(Performed 08/29/2023) Performed for Renal mass * CBC W AUTO DIFFERENTIAL(Performed 08/29/2023) Performed for Renal mass * IL CYSTO W/REMOVAL OF CLOTS(Performed 08/28/2023) * IR EMBOLIZATION TRANSCATH THPY(Performed 08/28/2023) Performed for Renal mass, Gross hematuria, Post-operative hemoglobin drop * BASIC METABOLIC PANEL (CALCIUM TOTAL)(Performed 08/28/2023) Performed for Renal mass * CBC W AUTO DIFFERENTIAL(Performed 08/28/2023) Performed for Renal mass * CT ANGIO ABDOMEN PELVIS(Performed 08/27/2023) Performed for Renal mass * CBC W/O DIFFERENTIAL(Performed 08/27/2023) * XR CHEST 1VW PORTABLE(Performed 08/27/2023) Performed for Renal mass * XR ABDOMEN KUB(Performed 08/27/2023) Performed for Renal mass * BASIC METABOLIC PANEL (CALCIUM TOTAL)(Performed 08/27/2023) Performed for Renal mass * CBC W AUTO DIFFERENTIAL(Performed 08/27/2023) Performed for Renal mass * BASIC METABOLIC PANEL (CALCIUM TOTAL)(Performed 08/26/2023) Performed for Renal mass * CBC W AUTO DIFFERENTIAL(Performed 08/26/2023) Performed for Renal mass * BASIC METABOLIC PANEL (CALCIUM TOTAL)(Performed 08/25/2023) Performed for Renal mass * CBC W AUTO DIFFERENTIAL(Performed 08/25/2023) Performed for Renal mass * CBC W/O DIFFERENTIAL(Performed 08/24/2023) * TRANSFUSE RED BLOOD CELL LEUKOREDUCED UNIT(S)(Performed 08/24/2023) * PREPARE RBC LEUKOREDUCED UNIT(Performed 08/24/2023) * VAS BILATERAL VENOUS DUPLEX LE(Performed 08/24/2023) Performed for Renal mass * TRANSFUSE RED BLOOD CELL LEUKOREDUCED UNIT(S)(Performed 08/24/2023) * PREPARE RBC LEUKOREDUCED UNIT(Performed 08/24/2023) * TYPE + SCREEN PANEL(Performed 08/24/2023) * BASIC METABOLIC PANEL (CALCIUM TOTAL)(Performed 08/24/2023) Performed for Renal mass * CBC W AUTO DIFFERENTIAL(Performed 08/24/2023) Performed for Renal mass * PREPARE RBC LEUKOREDUCED UNIT(Performed 08/24/2023) * SLIDE SCAN HEMATOLOGY(Performed 08/23/2023) * CBC W AUTO DIFFERENTIAL(Performed 08/23/2023) * CT ANGIO CHEST ABDOMEN PELVIS(Performed 08/23/2023) Performed for Anemia associated with acute blood loss * TRANSFUSE RED BLOOD CELL LEUKOREDUCED UNIT(S)(Performed 08/23/2023) * PREPARE RBC LEUKOREDUCED UNIT(Performed 08/23/2023) * BASIC METABOLIC PANEL (CALCIUM TOTAL)(Performed 08/23/2023) Performed for Renal mass * CBC W AUTO DIFFERENTIAL(Performed 08/23/2023) Performed for Renal mass * HGB HCT PANEL(Performed 08/22/2023) * TRANSFUSE RED BLOOD CELL LEUKOREDUCED UNIT(S)(Performed 08/22/2023) * PREPARE RBC LEUKOREDUCED UNIT(Performed 08/22/2023) * PT EVAL AND TREAT(Performed 08/22/2023) * OT EVAL AND TREAT(Performed 08/22/2023) * MAGNESIUM BLOOD(Performed 08/22/2023) Performed for Renal mass * PTT(Performed 08/22/2023) Performed for Renal mass * PT-INR(Performed 08/22/2023) Performed for Renal mass * BASIC METABOLIC PANEL (CALCIUM TOTAL)(Performed 08/22/2023) Performed for Renal mass * CBC W AUTO DIFFERENTIAL(Performed 08/22/2023) Performed for Renal mass * IR EMBOLIZATION TRANSCATH THPY(Performed 08/21/2023) Performed for Renal mass * CT ANGIO ABDOMEN PELVIS(Performed 08/21/2023) Performed for Renal mass * CBC W/O DIFFERENTIAL(Performed 08/21/2023) Performed for Renal mass * BASIC METABOLIC PANEL (CALCIUM TOTAL)(Performed 08/21/2023) Performed for Renal mass * CBC W AUTO DIFFERENTIAL(Performed 08/21/2023) Performed for Renal mass * PATHOLOGY TISSUE EXAM (STL)(Performed 08/20/2023) Performed for Diagnosis unknown * ENDOTRACHEAL TUBE NOTE(Performed 08/20/2023) * IL LAPAROSCOPY PARTIAL NEPHRECTOM(Performed 08/20/2023) Performed for Diagnosis unknown * BLOOD TYPE VERIFICATION(Performed 08/20/2023) * TYPE + SCREEN PANEL(Performed 08/20/2023) * MRI CERVICAL SPINE WO CONTRAST(Performed 12/25/2016) Results * (ABNORMAL) CBC W AUTO DIFFERENTIAL (06/17/2024 12:11 [facility] Only the most recent of22 resultswithin the time period is included. WBC 8.3 4.0 - 10.7 x10E9/L 06/17/2024 1:31 AM [facility] RBC Count 4.06(L) 4.30 - 5.80 x10E12/L 06/17/2024 1:31 AM [facility] Hemoglobin 12.5(L) 13.3 - 17.5 g/dL 06/17/2024 1:31 AM [facility] Hematocrit 36.4(L) 38.7 - 51.1 % 06/17/2024 1:31 AM [facility] MCV 89.7 80.0 - 98.0 fL 06/17/2024 1:31 AM [facility] MCH 30.8 26.7 - 33.6 pg 06/17/2024 1:31 AM [facility] MCHC 34.3 31.7 - 36.3 g/dL 06/17/2024 1:31 AM [facility] RDW-CV 12.1 11.3 - 14.8 % 06/17/2024 1:31 AM [facility] Platelet Count 316 150 - 420 x10E9/L 06/17/2024 1:31 AM [facility] MPV 9.6 7.8 - 11.4 fL 06/17/2024 1:31 AM [facility] Neutrophil % 54.7 41.0 - 74.0 % 06/17/2024 1:31 AM [facility] Lymphocyte % 30.5 17.0 - 47.0 % 06/17/2024 1:31 AM [facility] Monocyte % 7.5 3.0 - 11.0 % 06/17/2024 1:31 AM [facility] Eosinophil % 5.6 0.0 - 7.0 % 06/17/2024 1:31 AM [facility] Basophil % 0.6 0.0 - 1.6 % 06/17/2024 1:31 AM [facility] Immature Granulocytes % 1.1(H) 0.0 - 1.0 % 06/17/2024 1:31 AM [facility] Neutrophil Absolute 4.53 1.60 - 7.50 x10E9/L 06/17/2024 1:31 AM [facility] Lymphocyte Absolute 2.52 1.00 - 4.40 x10E9/L 06/17/2024 1:31 AM [facility] Monocyte Absolute 0.62 0.15 - 1.00 x10E9/L 06/17/2024 1:31 AM [facility] Eosinophil Absolute 0.46 0.00 - 0.60 x10E9/L 06/17/2024 1:31 AM [facility] Basophil Absolute 0.05 0.00 - 0.13 x10E9/L 06/17/2024 1:31 AM [facility] Blood BLOOD SPECIMEN / Unknown Lab Venipuncture / Unknown 06/17/2024 12:11 AM CDT 06/17/2024 1:28 AM CDT Brenda Peterson MD LAB - HEMATOLOGY O RDERABLES Performing Organization Address City/State/[facility] Co de Phone Number [facility] [address] [place] [address], [facility] [phone] * (ABNORMAL) BASIC METABOLIC PANEL (CALCIUM TOTAL) (06/17/2024 12:11 AM CDT) Only the most recent of21 resultswithin the time period is included. BUN 22 7 - 26 mg/dL 06/17/2024 1:58 AM [facility] Creatinine 0.94 0.71 - 1.16 mg/dL 06/17/2024 1:58 AM [facility] Sodium 135(L) 136 - 145 mmol/L 06/17/2024 1:58 AM [facility] Potassium 3.4(L) 3.5 - 4.5 mmol/L 06/17/2024 1:58 AM [facility] Chloride 103 98 - 107 mmol/L 06/17/2024 1:58 AM [facility] CO2 24 22 - 29 mmol/L 06/17/2024 1:58 AM [facility] Glucose 132(H) 70 - 115 mg/dL 06/17/2024 1:58 AM [facility] Calcium 8.6 8.4 - 10.2 mg/dL 06/17/2024 1:58 AM [facility] Anion Gap 8 6 - 16 06/17/2024 1:58 AM [facility] BUN/Creatinine Ratio 23 7 - 23 06/17/2024 1:58 AM [facility] Osmolality Calculated 285 275 - 295 mOsm/kg 06/17/2024 1:58 AM [facility] eGFR by CKD-EPI >90 >=90 mL/min/1.7 3 m2 06/17/2024 1:58 AM [facility] Blood BLOOD SPECIMEN / Unknown Lab Venipuncture / Unknown 06/17/2024 12:11 AM CDT 06/17/2024 1:28 AM CDT Brenda Peterson MD LAB - CHEMISTRY OR DERABLES Performing Organization Address City/State/[facility] Co de Phone Number [facility] [address] [place] [address], [facility] [phone] * PHOSPHORUS BLOOD (06/17/2024 12:11 AM CDT) Only the most recent of8 resultswithin the time period is included. Phosphorus 3.5 2.8 - 5.1 mg/dL 06/17/2024 1:58 AM [facility] Blood BLOOD SPECIMEN / Unknown Lab Venipuncture / Unknown 06/17/2024 12:11 AM CDT 06/17/2024 1:28 AM CDT Brenda Peterson MD LAB - CHEMISTRY OR DERABLES [address] [address], [facility] [phone] * MAGNESIUM BLOOD (06/17/2024 12:11 AM CDT) Only the most recent of11 resultswithin the time period is included. Magnesium 2.1 1.6 - 2.6 mg/dL 06/17/2024 1:58 AM CDT [facility] Blood BLOOD SPECIMEN / Unknown Lab Venipuncture / Unknown 06/17/2024 12:11 AM CDT 06/17/2024 1:28 AM CDT Brenda Peterson MD LAB - CHEMISTRY OR DERABLES Performing Organization Address [facility] Co de Phone Number [address] [address], [facility] [phone] * CT Abdomen Pelvis W Contrast (06/14/2024 2:20 PM CDT) Anatomical Region Laterality Modality Abdomen, Pelvis Computed Tomogra phy 06/14/2024 2:57 PM CDT Impressions 06/14/2024 6:25 PM CDT Impression: 1.Mild dilatation of colonic and small bowel loops without any transition point, likely representing ileus. No evidence of contrast extravasation from the bowel loops. 2.Postsurgical changes to the right kidney as well as postembolization changes with areas of scarring. 3. Left adrenal nodule, previously measured less than 10 Hounsfield units, representing an adenoma. 4. 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 This can be further evaluated with ultrasound. 5. Tiny foci of free air in the abdominal cavity, likely related patient's recent surgery. 6. Nodular mucosal thickening/enhancement in left lateral base of bladder, concerning for neoplasm. Bladder calculi are thought to be less likely given the slightly lateral and nondependent location. Recommend further evaluation with ultrasound or cystoscopy. > Dictated by Анна Hill MDMD (sales and marketing vice president). > Dictated by Анна Hill MD (Audio Visual Design Engineer) 06/14/2024 2:57 PM I, Catrachito Davila MD have personally reviewed and interpreted this examination/study. > Interpreting Provider: Catrachito Davila MD on 06/14/2024 6:25 PM Narrative 06/14/2024 6:25 PM CDT PROCEDURE: CT ABDOMEN PELVIS W CONTRAST, DATE/TIME OF EXAM: 06/14/2024 2:49 PM, LOCATION [facility] INDICATION: C18.7: Cancer of sigmoid colon (HCC) ADDITIONAL CLINICAL INFORMATION: Ordering Provider Reason For Exam: Hx sigmoid colectomy. Ileus persistent. Enteral and rectal contrast Additional: s/p robotic sigmoid resection, mobilization of splenic flexure, flexible sigmoidscopy on 06/09/2024. Patient has persistent ileus. Rectal contrast and oral contrast through NG tube as tolerated. Rectal contrast was requested. COMPARISON: CT chest abdomen with contrast 03/31/2024, x-ray abdomen KUB 06/11/2024. TECHNIQUE: CT of the abdomen and pelvis with oral and rectal contrast was performed following the uneventful administration of 100 mL of Isovue 370 intravenous contrast according to standard protocol. Oral and rectal contrast was administered. Findings: Lines/Tubes: Nasogastric tube located in stomach and rectal tube located in rectum are seen. Lower Chest: Mild dependent bibasilar atelectasis are seen. Liver: The liver appears normal. There is a subtle partial filing defect within anterior branch of right portal vein (series 3 image 40), concerning for partial portal venous thrombus. Gallbladder and Bile Ducts: There is a focal intrahepatic bile duct dilatation in the right hepatic lobe (series 3 image 36), more prominent compared to prior scan. No abnormality within gallbladder is seen. Spleen: Well-circumscribed hypoattenuating lesion in the posterior aspect of the spleen (series 3 image for 42) is unchanged compared to prior scan, likely a cyst or hemangioma. Pancreas: Normal. Adrenals: Left adrenal nodule measuring 1.8 cm is unchanged compared to prior scan, previously was consistent with an adenoma. Right adrenal gland within normal limits. Kidneys: Postsurgical changes in the right kidney are again seen. Embolization coils also noted within the right kidney along with areas of scarring. Left kidney within normal limits Gastrointestinal: Postsurgical changes regarding patient's recent sigmoid colonic resection is seen. Mild dilated colonic bowel loops with air-fluid levels without any obstruction. There is no extravasation of intraluminal contrast. Contrast is present throughout the small bowel loops without evidence of obstruction. Mesentery/Peritoneum/Retroperitoneum: Mild free fluid in the pelvis likely related patient's recent surgery. There is tiny foci of air in the anterior peritoneum (image 123, series 3), likely related to recent surgery. Bladder: There is a nodular mucosal thickening/enhancement in left lateral base of bladder (image 141, series 3). Reproductive Organs: Prostate is enlarged measuring 5.7 x 4.2 x 5.2 cm. There is also some calcifications within prostate gland. There are some calcifications within scrotum, nonspecific Vasculature: No vascular abnormality is present. Bones: Bone windows demonstrate no suspicious lytic or blastic lesions. The visible osseous structures are intact. Mild degenerative changes throughout the spine and pelvic bones are seen. Lumbarization of S1 vertebra seen. Soft tissues: Mild fat stranding is noted in the right anterior abdominal wall likely postsurgical. Procedure Note Paz Davila MD - 06/14/2024 PROCEDURE: CT ABDOMEN PELVIS W CONTRAST, DATE/TIME OF EXAM: 06/14/2024 2:49 PM, LOCATION [facility] INDICATION: C18.7: Cancer of sigmoid colon (HCC) ADDITIONAL CLINICAL INFORMATION: Ordering Provider Reason For Exam: Hx sigmoid colectomy. Ileuspersistent. Enteral and rectal contrast Additional: s/p robotic sigmoid resection, mobilization of splenicflexure, flexible sigmoidscopy on 06/09/2024. Patient has persistent ileus. Rectal contrast and oral contrast through NG tube as tolerated. Rectal contrast was requested. COMPARISON: CT chest abdomen with contrast 03/31/2024, x-ray abdomen KUB 06/11/2024. TECHNIQUE: CT of the abdomen and pelvis with oral and rectal contrastwas performed following the uneventful administration of 100 mL of [id number] intravenous contrast according to standard protocol. Oral and rectal contrast was administered. Findings: Lines/Tubes: Nasogastric tube located in stomach and rectal tube located in rectumare seen. Lower Chest: Mild dependent bibasilar atelectasis are seen. Liver: The liver appears normal. There is a subtle partial filing defect within anterior branch of right portal vein (series 3 image 40), concerning for partial portal venous thrombus. Gallbladder and Bile Ducts: There is a focal intrahepatic bile duct dilatation in the right hepatic lobe (series 3 image 36), more prominent compared to prior scan. No abnormality within gallbladder is seen. Spleen: Well-circumscribed hypoattenuating lesion in the posterior aspect of the spleen (series 3 image for 42) is unchanged compared to prior scan,likely a cyst or hemangioma. Pancreas: Normal. Adrenals: Left adrenal nodule measuring 1.8 cm is unchanged compared to priorscan, previously was consistent with an adenoma. Right adrenal gland within normal limits. Kidneys: Postsurgical changes in the right kidney are again seen. Embolizationcoils also noted within the right kidney along with areas of scarring. Left kidney within normal limits Gastrointestinal: Postsurgical changes regarding patient's recent sigmoid colonicresection is seen. Mild dilated colonic bowel loops with air-fluid levels withoutany obstruction. There is no extravasation of intraluminal contrast.Contrast is present throughout the small bowel loops without evidence of obstruction. Mesentery/Peritoneum/Retroperitoneum: Mild free fluid in the pelvis likely related patient's recent surgery. There is tiny foci of air in the anterior peritoneum (image 123, series3), likely related to recent surgery. Bladder: There is a nodular mucosal thickening/enhancement in left lateral baseof bladder (image 141, series 3). Reproductive Organs: Prostate is enlarged measuring 5.7 x 4.2 x 5.2 cm. There is also some calcifications within prostate gland. There are some calcificationswithin scrotum, nonspecific Vasculature: No vascular abnormality is present. Bones: Bone windows demonstrate no suspicious lytic or blastic lesions. The visible osseous structures are intact. Mild degenerative changesthroughout the spine and pelvic bones are seen. Lumbarization of S1 vertebra seen. Soft tissues: Mild fat stranding is noted in the right anterior abdominal wall likely postsurgical. Impression: 1.Mild dilatation of colonic and small bowel loops without anytransition point, likely representing ileus. No evidence of contrast extravasation from the bowel loops. 2.Postsurgical changes to the right kidney as well as postembolization changes with areas of scarring. 3. Left adrenal nodule, previously measured less than 10 Hounsfieldunits, representing an adenoma. 4. 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 This can be further evaluated with ultrasound. 5. Tiny foci of free air in the abdominal cavity, likely related patient's recent surgery. 6. Nodular mucosal thickening/enhancement in left lateral base of bladder, concerning for neoplasm. Bladder calculi are thought to be less likely given the slightly lateral and nondependent location. Recommend further evaluation with ultrasound or cystoscopy. > Dictated by Анна Hill MD, MD (sales and marketing vice president). > Dictated by Анна Hill MD (Audio Visual Design Engineer) 06/14/2024 2:57PM Catrachito Crews MD have personally reviewed and interpreted this examination/study. > Interpreting Provider: Catrachito Davila MD on 06/14/2024 6:25 PM Brenda Peterson MD CT ORDERABLES * XR Abdomen Kub Portable (06/13/2024 7:45 AM CDT) Only the most recent of4 resultswithin the time period is included. Anatomical Region Laterality Modality Abdomen Radiographic Ilsa ging 06/13/2024 9:00 AM CDT Narrative 06/13/2024 3:55 PM CDT PROCEDURE: XR ABDOMEN KUB PORTABLE, DATE/TIME OF EXAM: 06/13/2024 8:09 AM, LOCATION [facility] INDICATION: C18.7: Cancer of sigmoid colon (HCC) ADDITIONAL CLINICAL INFORMATION: Ordering Provider Reason For Exam: NG placement COMPARISON: X-ray abdomen from 06/11/2024 FINDINGS/IMPRESSION: Enteric tube courses below the diaphragm with the distal tip superimposing the expected location of the gastric body. > Dictated by Hector Sanabria DO (sales and marketing vice president). IMaylin MD have personally reviewed and interpreted this examination/study. > Interpreting Provider: Maylin Murguia MD on 06/13/2024 3:55 PM Procedure Note Maylin Murguia MD - 06/13/2024 PROCEDURE: XR ABDOMEN KUB PORTABLE, DATE/TIME OF EXAM: 06/13/2024 8:09AM, LOCATION [facility] INDICATION: C18.7: Cancer of sigmoid colon (HCC) ADDITIONAL CLINICAL INFORMATION: Ordering Provider Reason For Exam: NG placement COMPARISON: X-ray abdomen from 06/11/2024 FINDINGS/IMPRESSION: Enteric tube courses below the diaphragm with the distal tipsuperimposing the expected location of the gastric body. > Dictated by Hector Sanabria DO (sales and marketing vice president). I, Maylin Murguia MD have personally reviewed and interpreted this examination/study. > Interpreting Provider: Maylin Murguia MD on 06/13/2024 3:55 PM Brenda Peterson MD DIAGNOSTIC IMAGING ORDERABLES * (ABNORMAL) CBC W/O DIFFERENTIAL (06/10/2024 12:29 AM T) Only the most recent of4 resultswithin the time period is included. WBC 10.7 4.0 - 10.7 x10E9/L 06/10/2024 1:10 AM [facility] RBC Count 4.16(L) 4.30 - 5.80 x10E12/L 06/10/2024 1:10 AM [facility] Hemoglobin 12.7(L) 13.3 - 17.5 g/dL 06/10/2024 1:10 AM [facility] Hematocrit 37.6(L) 38.7 - 51.1 % 06/10/2024 1:10 AM [facility] MCV 90.4 80.0 - 98.0 fL 06/10/2024 1:10 AM [facility] MCH 30.5 26.7 - 33.6 pg 06/10/2024 1:10 AM [facility] MCHC 33.8 31.7 - 36.3 g/dL 06/10/2024 1:10 AM [facility] RDW-CV 12.3 11.3 - 14.8 % 06/10/2024 1:10 AM [facility] Platelet Count 230 150 - 420 x10E9/L 06/10/2024 1:10 AM [facility] MPV 9.7 7.8 - 11.4 fL 06/10/2024 1:10 AM [facility] Blood BLOOD SPECIMEN / Unknown Lab Venipuncture / Unknown 06/10/2024 12:29 AM CDT 06/10/2024 1:00 AM CDT Brenda Peterson MD LAB - HEMATOLOGY O RDERABLES [facility] [address] [place] [address], [facility] [phone] * (ABNORMAL) RENAL FUNCTION PANEL (06/10/2024 12:29 AM CDT) BUN 15 7 - 26 mg/dL 06/10/2024 1:48 AM [facility] Creatinine 0.89 0.71 - 1.16 mg/dL 06/10/2024 1:48 AM [facility] Sodium 135(L) 136 - 145 mmol/L 06/10/2024 1:48 AM [facility] Potassium 3.9 3.5 - 4.5 mmol/L 06/10/2024 1:48 AM [facility] Chloride 102 98 - 107 mmol/L 06/10/2024 1:48 AM [facility] CO2 26 22 - 29 mmol/L 06/10/2024 1:48 AM [facility] Glucose 170(H) 70 - 115 mg/dL 06/10/2024 1:48 AM [facility] Albumin 3.2(L) 3.4 - 5.0 g/dL 06/10/2024 1:48 AM [facility] Calcium 8.9 8.4 - 10.2 mg/dL 06/10/2024 1:48 AM [facility] Phosphorus 1.7(L) 2.8 - 5.1 mg/dL 06/10/2024 1:48 AM [facility] Anion Gap 7 6 - 16 06/10/2024 1:48 AM [facility] BUN/Creatinine Ratio 17 7 - 23 06/10/2024 1:48 AM [facility] Osmolality Calculated 285 275 - 295 mOsm/kg 06/10/2024 1:48 AM [facility] eGFR by CKD-EPI >90 >=90 mL/min/1.7 3 m2 06/10/2024 1:48 AM [facility] Blood BLOOD SPECIMEN / Unknown Lab Venipuncture / Unknown 06/10/2024 12:29 AM CDT 06/10/2024 1:00 AM CDT Brenda Peterson MD LAB - CHEMISTRY OR DERABLES [facility] [address] [place] [address], [facility] [phone] * PATHOLOGY TISSUE (06/08/2024 1:04 PM CDT) Case Report Surgical Pathology Report Case: [id number] Authorizing Provider: Brenda Peterson MD Collected: 06/08/2024 01:04 PM Ordering Location: [facility] Received: 06/08/2024 02:39 PM Pathologist: Little Kahn MD Specimens: A) - Colon, Proximal donut B) - Colon, Distal donut, true distal margin C) - Colon Sigmoid , sigmoid colon 06/10/2024 2:18 PM CDT [facility] Final Diagnosis Large intestine, proximal donut, excision (A): - No evidence of malignancy Large intestine, distal donut/true distal margin, excision (B): - No evidence of malignancy Large intestine, sigmoid colon, resection (C): - Scar and pseudopolyp with tattoo pigment - No residual malignancy - Thirty-three lymph nodes with no evidence of malignancy (0/33) 06/10/2024 2:18 PM CDT [facility] Microscopic Description and Comment Gross examination of the colon showed a polypoid lesion in the region of tattoo which is entirely submitted for histologic examination and shows only scarlike pseudopolyp change without residual malignancy. No other gross lesions are identified, and the findings are compatible with the reported history of complete excision (prior diagnostic material not provided for review). Regardless, there is no evidence of malignancy within this resection, including no metastatic carcinoma in any of the pericolonic lymph nodes. 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 Operative procedure/findings: Robotic sigmoid resection. 06/10/2024 2:18 PM T [facility] Gross Description The requisition and specimen(s) are identified with the patient's name, Katina Hernánedz. Received in formalin, specimen A , is a circular shaped segment of bowel measuring 1.5 x 1.5 x 0.5 cm. The serosal surfaces are monterroso-pink, roughened with focal attached adipose tissue. Sectioning shows unremarkable bowel mucosa with embedded staple material. Endo Tech sections are submitted in A1. Received in formalin, specimen B is a circular shaped segment of bowel measuring 2.0 x 1.8 x 1.2 cm. The serosal surfaces are monterroso-pink, roughened with attached adipose tissue. Sectioning shows unremarkable bowel mucosa with embedded blue suture material. Endo Tech sections are submitted in B1. Received in formalin, specimen C is a oriented segment of large bowel with a moderate amount of attached adipose tissue and mesentery measuring 17.5 cm in length by 5.5 cm in circumference (wall thickness 0.7 cm). The serosal surface is monterroso-pink, smooth and glistening with a focal area of diaz-black discoloration consistent with tattoo ink measuring 1.5 x 1.0 cm. The bowel is opened to show monterroso-brown, exophytic, polypoid lesion measuring 1.5 x 0.8 cm and extending beyond the mucosal surface 1.0 cm. Surrounding the lesion is an area of diaz-black discoloration consistent with previously mentioned tattoo ink. The lesion is located 5.0 cm to the distal resection margin, 7.0 cm to the closest mesenteric margin, and 11.0 cm to the proximal resection margin. Sectioning through the lesion shows a possible depth of invasion of 0.5 cm extending through the muscularis propria and coming within 0.2 cm from the serosal surface. The remaining uninvolved bowel mucosa is monterroso-brown, glistening with normal mucosal folds. No additional lesions or areas of interest are grossly appreciated. Dissection of the attached adipose tissue shows multiple possible lymph node candidates ranging from 0.1 cm to 1.0 cm in greatest dimension. Endo Tech sections are submitted as follows: C1 proximal resection margin, en face C2 distal resection margin, en face C3 closest mesenteric margin, en face (inked yellow) C4 lesion to include deepest extent of invasion C5 lesion to include adjacent uninvolved C6-C7 remainder of lesion and area of tattoo ink C8 uninvolved mucosa C9-C14 multiple lymph nodes, submitted whole C15 1 lymph node candidate, bisected C16 1 lymph node candidate, bisected C17 1 lymph node candidate, serially sectioned MSL 06/10/2024 2:18 PM CDT [facility] Pathologist Location at [facility] 06/10/2024 2:18 PM CDT [facility] Disclaimer The performance characteristics of all immunohistochemical and indirect immunofluorescence stains (if any) cited in this report were determined by the Histopathology Laboratory of [facility]. Some of these tests were developed by our own laboratory and have not been cleared or approved by the US Food and Drug Administration. The FDA does not require this test to go through premarket FDA review. These tests are used for clinical purposes. They should not be regarded as investigational or for research. This laboratory is certified under the Clinical Laboratory Improvement Amendments (CLIA) as qualified to perform high complexity clinical laboratory testing. This case has been personally reviewed and interpreted by the attending (teaching) pathologist. 06/10/2024 2:18 PM CDT [facility] Embedded Images 06/10/2024 2:18 PM CDT [facility] Biopsy, Excision COLON PART / Unknown 06/08/2024 1:04 PM CDT 06/08/2024 2:39 PM CDT Comment:Pre-op diagnosis: Cancer of sigmoid colon Biopsy, Excision COLON PART / Unknown 06/08/2024 1:04 PM CDT 06/08/2024 2:39 PM CDT Comment:Pre-op diagnosis: Cancer of sigmoid colon Biopsy, Excision ENTIRE SIGMOID COLON / Unknown 06/08/2024 1:23 PM CDT 06/08/2024 2:39 PM CDT Comment:Pre-op diagnosis: Cancer of sigmoid colon Brenda Peterson MD LAB - PATHOLOGY/LOLIS LARIOS ORDERABLES [facility] [address] [phone] * IV PLACEMENT PERFORMABLE (06/08/2024 10:19 AM CDT) Narrative Lj Molina MD - 06/08/2024 10:19 AM CDT Lj Molina MD 06/08/2024 10:20 AM Peripheral IV Line Placement: Patient Location: OR Insertion Time: 06/08/2024 9:30 AM Procedure: IV start ([id number]) Procedure Section: Skin Prep: alcohol. Orientation: left Location: hand Catheter Gauge: 18 Number of Attempts: 1. Procedure Tolerance: tolerated well. Staff Section Anesthesia Provider: Spencer Dougherty MD, Performed the procedure Provider #1: Lj Molina MD. Spencer Dougherty MD GENERAL ANESTHESIA O TATIBLES * ETT LINE PERFORMABLE (06/08/2024 10:18 AM CDT) Narrative Lj Molina MD - 06/08/2024 10:18 AM CDT Lj Molina MD 06/08/2024 10:19 AM Endotracheal Tube Placement: Patient Location: OR. Intubation Event Date/Time: 06/08/2024 9:25 AM Procedure: intubation ([id number]) Procedure Section: Sedation: under general anesthesia. Indications for Airway Management: anesthesia Induction: standard IV Patient Position: supine and sniffing Mask Ventilation: easy. Blade Type: Jam Blade Size: 4 Laryngoscopy View: grade 1 (full cords) Intubation Adjuncts: stylet and cricoid pressure Tube: endotracheal tube Placement: oral Tube type: cuff - inflated Tube Size (MM): 8 Depth of Insertion (CM): 24 Measured From: teeth Cuff volume (mL): 6 Cuff Inflated With: air Number of Attempts: 1. Placement Verified By: chest auscultation, bilateral breath sounds, CO2 monitor and direct visualization Tube secured with: adhesive tape. Dentition unchanged? Yes Difficult Airway? No. Procedure Start Time: 06/08/2024 9:25 AM. Staff Section Anesthesia Provider: Lj Molina MD, Performed the procedure Provider #1: Spencer Dougherty MD. Spencer Dougherty MD GENERAL ANESTHESIA O JESSIE * TYPE + SCREEN PANEL (06/08/2024 7:18 AM CDT) Only the most recent of4 resultswithin the time period is included. Antibody Screen NEG 8:00 AM CDT [facility] ABO Rh O POS 06/08/2024 8:00 AM CDT [facility] Blood Bank BLOOD SPECIMEN / Unknown Venipuncture / Unknown 06/08/2024 7:18 AM CDT 06/08/2024 7:21 AM CDT [facility] - BLO OD BANK ORDERABLES Performing Organization Address City/[facility]/ZIP Co de Phone Number [facility] [address] [place] [address], [facility] [phone] * CULTURE URINE (05/27/2024 12:27 PM CDT) Culture Urine <10,000 CFU/mL urogenital baldev LADI 05/28/2024 8:35 PM CDT [facility] Urine URINE SPECIMEN OBTAINED BY CLEAN CATCH PROCEDURE / Unknown Collection / Unknown 05/27/2024 12:27 PM CDT 05/27/2024 12:34 PM CDT Georges Cid MD LAB - MICROBIOLOGY ORDERABLES Performing Organization Address City/[facility] Co de Phone Number [facility] [address] [place] [address], [facility] [phone] * ENDOSCOPY, PROCTOSIGMOID (05/06/2024 8:28 AM CDT) Report Endoscopy POC Endoscopy Department Report _ Patient Name: Katina Hernández Procedure Date: 05/06/2024 8:28 AM Date of : 1965 Classification: Outpatient Gender: Male Ethnicity: Not or Race: White _ Providers: Brenda Peterson Referring MD: Shefali Gavin (Referring MD) Procedure: Flexible Sigmoidoscopy Indications: High risk colon cancer surveillance: Personal history of colon cancer Medications: Propofol per Anesthesia, None Description of Procedure: After obtaining informed consent, the endoscope was passed under direct vision. Throughout the procedure, the patient's blood pressure, pulse, and oxygen saturations were monitored continuously. The PCF-[id number] was introduced through the anus and advanced to the sigmoid colon. The flexible sigmoidoscopy was accomplished without difficulty. The patient tolerated the procedure well. The quality of the bowel preparation was good. Findings: The perianal and digital rectal examinations were normal. Pertinent negatives include no palpable rectal lesions. Rectosigmoid mass identified with tattoo at 15-17cm from anal verge, no rectal masses identified, Estimated blood loss: none. Estimated Blood Loss: Estimated blood loss: none. Complications: No immediate complications. Impression: - No specimens collected. 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 - Resume regular diet indefinitely. - Recommend segmental resection- anterior resection vs sigmoid resection. Attending Participation: I personally performed the entire procedure. Procedure Code(s): --- Professional --- 75611, Sigmoidoscopy, flexible; diagnostic, including collection of specimen(s) by brushing or washing, when performed (separate procedure) Diagnosis Code(s): --- Professional --- Z85.038, Personal history of other malignant neoplasm of large intestine CPT copyright 2021 [employer]. All rights reserved. The codes documented in this report are preliminary and upon regional truck driver review may be revised to meet current compliance requirements. _ Brenda Peterson, 05/06/2024 9:12:45 AM Note Initiated On: 05/06/2024 8:28 AM Number of Addenda: [address] PROVATION 05/06/2024 8:28 AM CDT Brenda Peterson MD GI PROCEDURE ORDER [facility] * MRI PELVIS WWO CONTRAST (03/31/2024 4:32 PM CDT) Anatomical Region Laterality Modality Pelvis Magnetic Resonan ce 04/03/2024 8:46 PM CDT Impressions 04/03/2024 9:20 PM CDT Impression: 1. No discrete mass lesions or mural thickening of the rectum, anal canal or distal sigmoid colon is identified. 2. An approximately 1.6 cm focal lesion in the left median segment of the lower third of the prostate with imaging features characteristic of clinically significant prostatic cancer. There is suspicious capsular invasion and involvement of adjacent left neurovascular bundles. Dedicated prosthetic MRI and biopsy are recommendations. 3. An additional discrete nodule is noted in the left peripheral zone of the apex of the gland, it is noted depicted in the DWI sequence. 4. Benign prostatic hyperplasia changes associated with findings suggestive some bladder outlet obstruction. > Interpreting Provider: Shala Mann MD on 04/03/2024 9:20 PM Narrative 04/03/2024 9:20 PM CDT PROCEDURE: MRI PELVIS WWO CONTRAST, DATE/TIME OF EXAM: 03/31/2024 4:32 PM, LOCATION [facility] INDICATION: C20: Rectal cancer (HCC) ADDITIONAL CLINICAL INFORMATION: Ordering Provider Reason For Exam: Rectal cancer protocol; rectal Contrast needed Technologist Note: Additional: COMPARISON: None. Technique: Multiplanar MRI of the pelvis performed without and with intravenous contrast according to the rectal cancer staging protocol. Contrast: GADOBENATE DIMEGLUMINE 529 MG/ML IV SOLN:18 mL Findings: Rectum: Rectum was empty and the lumen was collapsed. No mass lesions or focal mural thickening identified. Rectosigmoid and distal sigmoid colon: Unremarkable. Annular canal: Normal. Mesorectum and pelvic sidewall: A 4 mm mesorectal lymph node is noted in the right side of the mesorectum in the relation to the upper third of the rectum, otherwise no significantly enlarged mesorectal or pelvic sidewall lymph nodes. Prostate: Prostate is enlarged. There is an approximately 1.6 x 0.7 cm T2 low signal intensity lesion with diffusion restriction in the corresponding area in DWI sequence noted in the left median peripheral zone of lower third of the prostate (image 34 series 10). There is suspicious periprostatic extension and neuromuscular involvement (image 34 series 10 and image 55 series 33). No additional 3.5 mm T2 low signal intensity nodule is noted in the left posterior peripheral zone of the apex of the gland (image 37 series 10); however, it is not depicted in the DWI sequence. Urinary bladder is moderately distended and shows features suggestive of some bladder outlet obstruction. No focal lesions identified in the bladder. Procedure Note Shala Mann MD - 04/03/2024 PROCEDURE: MRI PELVIS WWO CONTRAST, DATE/TIME OF EXAM: 03/31/2024 4:32PM, LOCATION [facility] INDICATION: C20: Rectal cancer (HCC) ADDITIONAL CLINICAL INFORMATION: Ordering Provider Reason For Exam: Rectal cancer protocol; rectalContrast needed Technologist Note: Additional: COMPARISON: None. Technique: Multiplanar MRI of the pelvis performed without and with intravenous contrast according to the rectal cancer staging protocol. Contrast: GADOBENATE DIMEGLUMINE 529 MG/ML IV SOLN:18 mL Findings: Rectum: Rectum was empty and the lumen was collapsed. No mass lesions or focal mural thickening identified. Rectosigmoid and distal sigmoid colon: Unremarkable. Annular canal: Normal. Mesorectum and pelvic sidewall: A 4 mm mesorectal lymph node is noted in the right side of the mesorectum in the relation to the upper third ofthe rectum, otherwise no significantly enlarged mesorectal or pelvicsidewall lymph nodes. Prostate: Prostate is enlarged. There is an approximately 1.6 x 0.7 cmT2 low signal intensity lesion with diffusion restriction in thecorresponding area in DWI sequence noted in the left median peripheral zone of lower third of the prostate (image 34 series 10). There is suspicious periprostatic extension and neuromuscular involvement (image 34 and image 55 series 33). No additional 3.5 mm T2 low signal intensity nodule is noted in the left posterior peripheral zone of the apex of the gland (image 37 series 10); however, it is not depicted in the DWI sequence. Urinary bladder is moderately distended and shows features suggestive of some bladder outlet obstruction. No focal lesions identified in the bladder. Impression: 1. No discrete mass lesions or mural thickening of the rectum, analcanal or distal sigmoid colon is identified. 2. An approximately 1.6 cm focal lesion in the left median segment ofthe lower third of the prostate with imaging features characteristic of clinically significant prostatic cancer. There is suspicious capsular invasion and involvement of adjacent left neurovascular bundles.Dedicated prosthetic MRI and biopsy are recommendations. 3. An additional discrete nodule is noted in the left peripheral zone of the apex of the gland, it is noted depicted in the DWI sequence. 4. Benign prostatic hyperplasia changes associated with findingssuggestive some bladder outlet obstruction. > Interpreting Provider: Shala Mann MD on 49:20 PM Brenda Peterson MD MR ORDERABLES * CT CHEST ABDOMEN W CONTRAST (03/31/2024 3:13 PM CDT) Anatomical Region Laterality Modality Lung, Abdomen Computed Tomogra phy 03/31/2024 10:3 0 PM CDT Impressions 03/31/2024 10:45 PM CDT Impression: 1.No evidence of metastatic disease in the chest or abdomen. 2.Postsurgical changes to the right kidney as well as postembolization changes with areas of scarring. 3.No acute process in the chest or abdomen. 4.Stable-appearing left adrenal adenoma. > Interpreting Provider: Christiano Vásquez on 03/31/2024 10:45 PM Narrative 03/31/2024 10:45 PM CDT PROCEDURE: CT CHEST ABDOMEN W CONTRAST, DATE/TIME OF EXAM: 03/31/2024 3:14 PM, LOCATION [facility] INDICATION: C20: Rectal cancer (HCC) ADDITIONAL CLINICAL INFORMATION: Ordering Provider Reason For Exam: Technologist Note: Additional: COMPARISON: CT chest 06/02/2023, CT abdomen 05/31/2023. TECHNIQUE: CT of the chest, abdomen, and pelvis was performed after the uneventful administration of 100 mL of Isovue 370 intravenous contrast according to standard protocol. Findings: Chest: Lower Neck and Axillae: Normal. Lungs: Mild bilateral dependent atelectasis is present. No focal consolidative changes present. Left lower lobe perifissural nodule measuring 3 mm (series 4 image 49). No suspicious pulmonary nodules are identified. No pleural fluid or pneumothorax is present. Heart and Pericardium: The cardiac chambers are normal in size. No pericardial fluid or thickening is present. Mediastinum and Ana: No mediastinal hemorrhage is present. No enlarged lymph nodes are present. Thoracic Vasculature: No vascular abnormality is present. Abdomen/pelvis: Liver: Normal. Gallbladder and Bile Ducts: Normal. Spleen: Hypodensity in the posterior aspect of the spleen is unchanged since prior exam and likely a cyst. Pancreas: Normal. Adrenals: Left adrenal nodule measuring 1.8 cm is incompletely assessed on current exam. However, Hounsfield units on prior noncontrast CT chest was compatible with adenoma. Right adrenal gland within normal limits. Kidneys: Postsurgical changes to the right kidney with interval previously seen enhancing right renal mass. Embolization coils also noted within the right kidney along with areas of scarring. Left kidney within normal limits. Gastrointestinal: The stomach and visualized loops of large and small bowel are unremarkable. The appendix is not seen; however, no inflammatory changes are seen in the right lower quadrant. Mesentery/Peritoneum/Retroperitoneum: No free intraperitoneal air. No free fluid in the abdomen or pelvis. Abdominal Vasculature: No vascular abnormality is present. Bones: Bone windows demonstrate no suspicious lytic or blastic lesions. The visible osseous structures are intact. Degenerative changes are seen in the spine. Soft tissues: Normal. Procedure Note Christiano Vásquez MD - 03/31/2024 PROCEDURE: CT CHEST ABDOMEN W CONTRAST, DATE/TIME OF EXAM: :14 PM, LOCATION [facility] INDICATION: C20: Rectal cancer (HCC) ADDITIONAL CLINICAL INFORMATION: Ordering Provider Reason For Exam: Technologist Note: Additional: COMPARISON: CT chest 06/02/2023, CT abdomen 05/31/2023. TECHNIQUE: CT of the chest, abdomen, and pelvis was performed after the uneventful administration of 100 mL of Isovue 370 intravenous contrast according to standard protocol. Findings: Chest: Lower Neck and Axillae: Normal. Lungs: Mild bilateral dependent atelectasis is present. No focal consolidative changes present. Left lower lobe perifissural nodule measuring 3 mm (series 4 image 49). No suspicious pulmonary nodules are identified. No pleural fluid or pneumothorax is present. Heart and Pericardium: The cardiac chambers are normal in size. No pericardial fluid or thickening is present. Mediastinum and Ana: No mediastinal hemorrhage is present. No enlarged lymph nodes are present. Thoracic Vasculature: No vascular abnormality is present. Abdomen/pelvis: Liver: Normal. Gallbladder and Bile Ducts: Normal. Spleen: Hypodensity in the posterior aspect of the spleen is unchanged since prior exam and likely a cyst. Pancreas: Normal. Adrenals: Left adrenal nodule measuring 1.8 cm is incompletely assessedon current exam. However, Hounsfield units on prior noncontrast CT chestwas compatible with adenoma. Right adrenal gland within normal limits. Kidneys: Postsurgical changes to the right kidney with intervalpreviously seen enhancing right renal mass. Embolization coils also noted withinthe right kidney along with areas of scarring. Left kidney within normal limits. Gastrointestinal: The stomach and visualized loops of large and smallbowel are unremarkable. The appendix is not seen; however, no inflammatory changes are seen in the right lower quadrant. Mesentery/Peritoneum/Retroperitoneum: No free intraperitoneal air. Nofree fluid in the abdomen or pelvis. Abdominal Vasculature: No vascular abnormality is present. Bones: Bone windows demonstrate no suspicious lytic or blastic lesions.The visible osseous structures are intact. Degenerative changes are seen inthe spine. Soft tissues: Normal. Impression: 1.No evidence of metastatic disease in the chest or abdomen. 2.Postsurgical changes to the right kidney as well as postembolization changes with areas of scarring. 3.No acute process in the chest or abdomen. 4.Stable-appearing left adrenal adenoma. > Interpreting Provider: Christiano Vásquez on 03/31/2024 10:45 PM Brenda Peterson MD CT ORDERABLES * CREATININE - POCT INTERFACED (03/31/2024 3:07 PM CDT) Creatinine POCT 0.96 0.30 - 1.30 mg/dL 03/31/2024 3:11 PM CDT [facility] eGFR 90 >=90 mL/min/1.7 3 m2 03/31/2024 3:11 PM CDT [facility] Blood BLOOD SPECIMEN / Unknown 03/31/2024 3:07 PM CDT 03/31/2024 3:11 PM CDT Brenda Peterson MD LAB - POINT OF CAR E ORDERABLES [address] [address], [facility] [phone] * CARDIAC RHYTHM STRIP ORDER (09/02/2023 6:56 PM CDT) Narrative 09/02/2023 6:56 PM CDT Ordered by an unspecified provider. Scanned Document CARDIAC SERVICES ORD ERABLES * XR ABDOMEN KUB (08/29/2023 1:58 PM CDT) Only the most recent of2 resultswithin the time period is included. Anatomical Region Laterality Modality Abdomen Radiographic Ilsa ging 08/29/2023 5:58 PM CDT Narrative 08/29/2023 6:01 PM CDT PROCEDURE: XR ABDOMEN KUB DATE/TIME OF EXAM: 08/29/2023 1:58 PM CLINICAL INFORMATION: None relevant/not provided if blank. Indication: K59.01: Slow transit constipation XR ABDOMEN KUB HISTORY: Abdominal pain. COMPARISON: 08/27/2023. FINDINGS/IMPRESSION: 1. There has been apparent interval bowel movement since air is now visible in the transverse colon, left hemicolon, sigmoid and rectum. Abundant stool is confined to the right hemicolon at this time. 2. The bowel gas pattern is nonobstructive and is normal. 3. Coiling in 3 separate foci is identified in the right upper quadrant. 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 4. The imaged lung bases are clear. > Interpreting Provider: Hayes Hampton MD on 08/29/2023 6:01 PM Procedure Note Hayes Hampton MD - 08/29/2023 PROCEDURE: XR ABDOMEN KUB DATE/TIME OF EXAM: 08/29/2023 1:58 PM CLINICAL INFORMATION: None relevant/not provided if blank. Indication: K59.01: Slow transit constipation XR ABDOMEN KUB HISTORY: Abdominal pain. COMPARISON: 08/27/2023. FINDINGS/IMPRESSION: 1. There has been apparent interval bowel movement since air is nowvisible in the transverse colon, left hemicolon, sigmoid and rectum. Abundantstool is confined to the right hemicolon at this time. 2. The bowel gas pattern is nonobstructive and is normal. 3. Coiling in 3 separate foci is identified in the right upper quadrant. Two of them are new from the previous study and are related toembolization of mid pole segmental renal artery supplying an AVM/AVF which wasperformed on 08/28/2023. 4. The imaged lung bases are clear. > Interpreting Provider: Hayes Hampton MD on 08/29/2023 6:01 PM George Quintana MD DIAGNOSTIC IMAGING O RDERABLES * IR EMBOLIZATION TRANSCATH THPY (08/28/2023 1:39 PM CDT) Only the most recent of2 resultswithin the time period is included. 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 The segmental branch was satisfactorily embolized using microcoils. Follow up: Per primary team and urology. I, Dr. Mauricio Herrmann, was present and performed/supervised the entire procedure. Moderate sedation on this patient was ordered by , administered intravenously in my presence, and monitored by the procedure nurse as an independent trained observer who was present throughout the procedure. The following parameters were monitored: oxygen saturation, heart rate, blood pressure, and response to care. Intra-service sedation start time was 1238 and end time was 1339 during which I was present. Total physician intra-service sedation time was 61 minutes. For details on pre moderate sedation and post moderate sedation patient evaluation, please review the evaluation forms in [facility]. For details on monitored clinical parameters during the intra-service sedation time, please review the procedure nurse documentation in [facility]. > Interpreting Provider: Mauricio Herrmann DO on 08/28/2023 2:35 PM Narrative 08/28/2023 2:35 PM CDT PROCEDURE: IR EMBOLIZATION TRANSCATH THPY DATE/TIME OF EXAM: 08/28/2023 1:59 PM Indication: N28.89: Other specified disorders of kidney and ureter R31.0: Gross hematuria R71.0: Precipitous drop in hematocrit Z98.890: Other specified postprocedural states Operators: 1.Dr. Mauricio Herrmann, Attending Physician Anesthesia: 1.Local anesthesia - 10 mL of 1% lidocaine 2.Intravenous conscious sedation - Versed 2 mg and Fentanyl 100 mcg Procedure: 1.Ultrasound-guided access of the left radial artery. 2.Selective catheterization of the right renal artery (first order) and angiogram. 3.Subselective catheterization of the mid pole segmental renal arteries and angiograms. 4.Embolization of a mid pole segmental renal artery supplying an AVM/AVF with 0.018 Azur coils.. 5.Postembolization angiogram of the mid pole segmental renal artery. 6.Subselective catheterization of superior and inferior segmental renal arteries and angiograms. 7.Flush aortogram 8.Hemostasis with radial closure device. Fluoroscopic time: 28 minutes Contrast: 67 mL of Isovue-370 Procedure in detail: The procedure, risks, and possible complications were explained to the patient, and informed consent was obtained. The patient was brought to the angiography suite and placed supine on the procedure table. The left wrist was prepped and draped in the usual sterile fashion. A transport pilot film of the abdomen was obtained, which demonstrated the previously placed coil in the right renal artery capsular branch, otherwise unremarkable. The patient received intravenous Versed and Fentanyl for conscious sedation. A qualified radiology nurse monitored the patient s vital signs throughout the procedure. Limited ultrasound of the left radial artery demonstrated a patent vessel. The left radial artery measured 2.3 mm in AP diameter, and a Barbeau type B waveform was observed. The left radial artery was accessed using a micropuncture needle under ultrasound guidance. The needle entry was documented. Following a series of exchanges, a 5-Citizen Of [place] vascular sheath was placed. A radial cocktail consisting of 3000 units heparin, 200 mcg nitroglycerin, and 2.5 mg verapamil was administered intra-arterially through the sheath after appropriate hemodilution. Selective catheterization of the right renal artery (first order) was achieved with a Lesly radial catheter. Angiogram was performed which demonstrated no signs of active extravasation. Subselective catheterization of right renal midpole segmental arteries (second order) were achieved with a coaxially advanced 2.8 [place] Progreat microcatheter. 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 This was then followed by embolization of the mid pole segmental renal artery supplying the arteriovenous malformation/arteriovenous fistula with (2) 3 mm x 4 cm Azur CX microcoils and (2) 3 mm x 8 cm Azur CX microcoils. Post-embolization angiogram of the mid pole segmental renal arteries showed satisfactory hemostasis with no filling of the draining vein identified. There was no evidence of extravasation. Additionally, subselective catheterization was performed in the right renal superior pole segmental arteries (second order) and inferior pole segmental arteries (second order). Multiple angiograms were obtained in these arteries which demonstrated no evidence of active extravasation or early venous filling. At this point, a flush aortogram was performed using an Omni Flush catheter. There was no evidence of active extravasation identified. Patent hemostasis at the left wrist was achieved with a radial band. The band was inflated to 12 mL of air. The patient tolerated the procedure well and was transferred to the floor in stable condition. There were no immediate complications associated with the procedure. Procedure Note Mauricio Herrmann MD - 08/28/2023 PROCEDURE: [facility] DATE/TIME OF EXAM: 08/28/2023 1:59 PM Indication: N28.89: Other specified disorders of kidney and ureter R31.0: Gross hematuria R71.0: Precipitous drop in hematocrit Z98.890: Other specified postprocedural states Operators: 1.Dr. Mauricio Herrmann, Attending Physician Anesthesia: 1.Local anesthesia - 10 mL of 1% lidocaine 2.Intravenous conscious sedation - Versed 2 mg and Fentanyl 100 mcg Procedure: 1.Ultrasound-guided access of the left radial artery. 2.Selective catheterization of the right renal artery (first order) and angiogram. 3.Subselective catheterization of the mid pole segmental renal arteriesand angiograms. 4.Embolization of a mid pole segmental renal artery supplying an AVM/AVF with 0.018 Azur coils.. 5.Postembolization angiogram of the mid pole segmental renal artery. 6.Subselective catheterization of superior and inferior segmental renal arteries and angiograms. 7.Flush aortogram 8.Hemostasis with radial closure device. Fluoroscopic time: 28 minutes Contrast: 67 mL of Isovue-370 Procedure in detail: The procedure, risks, and possible complications were explained to the patient, and informed consent was obtained. The patient was brought tothe angiography suite and placed supine on the procedure table. The leftwrist was prepped and draped in the usual sterile fashion. A transport pilot film of the abdomen was obtained, which demonstrated the previously placed coil inthe right renal artery capsular branch, otherwise unremarkable. The patient received intravenous Versed and Fentanyl for conscious sedation. A qualified radiology nurse monitored the patient s vital signs throughout the procedure. Limited ultrasound of the left radial artery demonstrated a patentvessel. The left radial artery measured 2.3 mm in AP diameter, and a Barbeau typeB waveform was observed. The left radial artery was accessed using a micropuncture needle under ultrasound guidance. The needle entry was documented. Following a series of exchanges, a 5-Citizen [place] vascular sheathwas placed. A radial cocktail consisting of 3000 units heparin, 200 mcg nitroglycerin, and 2.5 mg verapamil was administered intra-arterially through the sheath after appropriate hemodilution. Selective catheterization of the right renal artery (first order) was achieved with a Compete radial catheter. Angiogram was performed which demonstrated no signs of active extravasation. Subselective catheterization of right renal midpole segmental arteries (second order) were achieved with a coaxially advanced 2.8 FrenchProgreat microcatheter. Angiogram is were performed which demonstrated earlyfilling of a vein in a branch of a mid pole segmental artery likely representingan arteriovenous malformation or arteriovenous fistula. This was then followed by embolization of the mid pole segmental renal artery supplying the arteriovenous malformation/arteriovenous fistulawith (2) 3 mm x 4 cm Azur CX microcoils and (2) 3 mm x 8 cm Azur CXmicrocoils. Post-embolization angiogram of the mid pole segmental renal arteriesshowed satisfactory hemostasis with no filling of the draining vein identified. There was no evidence of extravasation. Additionally, subselective catheterization was performed in the rightrenal superior pole segmental arteries (second order) and inferior polesegmental arteries (second order). Multiple angiograms were obtained in these arteries which demonstrated no evidence of active extravasation or early venous filling. At this point, a flush aortogram was performed using an Omni Flush catheter. There was no evidence of active extravasation identified. Patent hemostasis at the left wrist was achieved with a radial band. The band was inflated to 12 mL of air. The patient tolerated the procedurewell and was transferred to the floor in stable condition. There were no immediate complications associated with the procedure. 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 The segmental branch was satisfactorily embolized using microcoils. Follow up: Per primary team and urology. I, Dr. Mauricio Herrmann, was present and performed/supervised the entire procedure. Moderate sedation on this patient was ordered by me, administered intravenously in my presence, and monitored by theprocedure nurse as an independent trained observer who was present throughout the procedure. The following parameters were monitored: oxygen saturation, heart rate, blood pressure, and response to care. Intra-service sedation start time was 1238 and end time was 1339 during which I was present.Total physician intra-service sedation time was 61 minutes. For details on pre moderate sedation and post moderate sedation patient evaluation, please review the evaluation forms in [facility]. For details on monitored clinical parameters during the intra-service sedation time, please review the procedure nurse documentation in [facility]. > Interpreting Provider: Mauricio Herrmann DO on 08/28/2023 2:35 PM Ann Marie Juaquin Andrade IR ORDERABLES * CT ANGIO ABDOMEN PELVIS (08/27/2023 6:24 PM CDT) Only the most recent of2 resultswithin the time period is included. Anatomical Region Laterality Modality Abdomen, Pelvis Computed Tomogra phy 08/27/2023 6:28 PM CDT Impressions 08/27/2023 6:33 PM CDT IMPRESSION: 1. Retroperitoneal hemorrhage appear similar to the prior study in the right kidney without definite evidence of active arterial extravasation. 2. Subcutaneous air seen throughout the abdominal wall. Also there is a hyperattenuating mass noted in the bladder which could represent a blood clot in the acute setting however follow-up is recommended. 3. Basilar pulmonary emboli similar to prior study. > Interpreting Provider: Saleem Villagomez MD on 08/27/2023 6:33 PM Narrative 08/27/2023 6:33 PM CDT PROCEDURE: CT ANGIO ABDOMEN PELVIS DATE/TIME OF EXAM: 08/27/2023 6:25 PM CLINICAL INFORMATION: None relevant/not provided if blank. Indication: N28.89: Other specified disorders of kidney and ureter Additional History: COMPARISON: None. TECHNIQUE: CT angiography of the abdomen and pelvis was performed without IV contrast followed by IV contrast. including 3D post processing CTA image reconstruction. CT dose reduction technique was used, including Automated Exposure Control. CONTRAST: IOPAMIDOL 76 % IV SOLN:100 mL FINDINGS: Wedge-shaped areas of opacities are seen in the bilateral lung bases and there are 2 pulmonary emboli seen in the lung bases which are also present on the previous study. These could represent developing pulmonary infarctions. The heart appears normal in size. Small hyperattenuating densities are seen on the noncontrast images surrounding the right kidney which appear unchanged on postcontrast arterial phase images. There is large amount of hemorrhage surrounding the right kidney however no definite active areas of contrast blush are seen to represent active hemorrhaging. The left kidney appears normal. There is a nodule in the left adrenal gland which is small likely an adenoma. The right adrenal gland appears normal. Small hypoattenuating focus is seen in the spleen. The pancreas is normal. The gallbladder is mildly distended. Subcutaneous air is seen along the right lateral abdominal wall and extending towards the penis and in the bilateral inguinal regions. A fat-containing left inguinal hernia seen. There is a hyperattenuating mass in the bladder which could represent blood clot however follow-up is recommended as mass cannot be excluded. The prostate is markedly enlarged and Singletary catheter seen in the bladder. Bone windows demonstrate degenerative changes in the spine. Procedure Note Saleem Villagomez MD - 08/27/2023 PROCEDURE: CT ANGIO ABDOMEN PELVIS DATE/TIME OF EXAM: 08/27/2023 6:25 PM CLINICAL INFORMATION: None relevant/not provided if blank. Indication: N28.89: Other specified disorders of kidney and ureter Additional History: COMPARISON: None. TECHNIQUE: CT angiography of the abdomen and pelvis was performed without IVcontrast followed by IV contrast. including 3D post processing CTA image reconstruction. CT dose reduction technique was used, including Automated ExposureControl. CONTRAST: IOPAMIDOL 76 % IV SOLN:100 mL FINDINGS: Wedge-shaped areas of opacities are seen in the bilateral lung bases and there are 2 pulmonary emboli seen in the lung bases which are alsopresent on the previous study. These could represent developing pulmonary infarctions. The heart appears normal in size. Small hyperattenuating densities are seen on the noncontrast images surrounding the rightkidney which appear unchanged on postcontrast arterial phase images. There is large amount of hemorrhage surrounding the right kidney however nodefinite active areas of contrast blush are seen to represent activehemorrhaging. The left kidney appears normal. There is a nodule in the left adrenalgland which is small likely an adenoma. The right adrenal gland appearsnormal. Small hypoattenuating focus is seen in the spleen. The pancreas isnormal. The gallbladder is mildly distended. Subcutaneous air is seen along the right lateral abdominal wall and extending towards the penis and in the bilateral inguinal regions. A fat-containing left inguinal hernia seen. There is a hyperattenuating mass in the bladder which could representblood clot however follow-up is recommended as mass cannot be excluded. The prostate is markedly enlarged and Singletary catheter seen in the bladder.Bone windows demonstrate degenerative changes in the spine. IMPRESSION: 1. Retroperitoneal hemorrhage appear similar to the prior study in the right kidney without definite evidence of active arterial extravasation. 2. Subcutaneous air seen throughout the abdominal wall. Also there is a hyperattenuating mass noted in the bladder which could represent a blood clot in the acute setting however follow-up is recommended. 3. Basilar pulmonary emboli similar to prior study. > Interpreting Provider: Saleem Villagomez MD on 08/27/2023 6:33 PM Hafsa Shay MD CT ORDERABLES * XR CHEST 1VW PORTABLE (08/27/2023 12:15 PM CDT) Anatomical Region Laterality Modality Chest Radiographic Ilsa ging 08/27/2023 3:04 PM CDT Narrative 08/27/2023 4:33 PM CDT PROCEDURE: XR CHEST 1VW PORTABLE DATE/TIME OF EXAM: 08/27/2023 12:15 PM CLINICAL INFORMATION: None relevant/not provided if blank. Indication: N28.89: Other specified disorders of kidney and ureter. Additional History: FINDINGS/IMPRESSION: Subcutaneous air is noted in the right subclavicular region and there is subcutaneous air along the right chest wall. No definite fracture is seen, however, degenerative changes are noted in the shoulders. There is minimal basilar opacities, particularly in the left lung base, which could represent atelectasis versus airspace disease. The heart appears normal in size. The mediastinal contours appear normal. Edited by Kim Arvizu on 08/27/2023 3:13 PM > Interpreting Provider: Saleem Villagomez MD on 08/27/2023 4:33 PM Procedure Note Saleem Villagomez MD - 08/27/2023 PROCEDURE: XR CHEST 1VW PORTABLE DATE/TIME OF EXAM: 08/27/2023 12:15 PM CLINICAL INFORMATION: None relevant/not provided if blank. Indication: N28.89: Other specified disorders of kidney and ureter. Additional History: FINDINGS/IMPRESSION: Subcutaneous air is noted in the right subclavicular region and there is subcutaneous air along the right chest wall. No definite fracture isseen, however, degenerative changes are noted in the shoulders. There isminimal basilar opacities, particularly in the left lung base, which could represent atelectasis versus airspace disease. The heart appears normalin size. The mediastinal contours appear normal. Edited by Kim Arvizu on 08/27/2023 3:13 PM > Interpreting Provider: Saleem Villagomez MD on 08/27/2023 4:33 PM Hafsa Shay MD DIAGNOSTIC IMAGING O RDERABLES * PREPARE (CROSSMATCH) RBC UNIT(S), 1 Units (08/24/2023 12:46 PM CDT) Only the most recent of5 resultswithin the time period is included. Unit Description AS1 LR PRBC [facility] Unit ABO O [facility] Unit Rh POS [facility] Product Number R02 [facility] Unit Donor # [id number] [facility] Unit Status transfused [facility] Product [facility] [id number] [facility] Blood Type Barcode 5100 [facility] Expiration Date [id number] [facility] Blood Bank BLOOD SPECIMEN / Unknown 08/24/2023 6:50 AM CDT Georges Cid MD LAB - BLOOD BANK O RDERABLES [facility] [address] [place] [address] * VAS BILATERAL VENOUS DUPLEX LE (08/24/2023 10:59 AM CDT) Anatomical Region Laterality Modality Lower Extremity Ultrasound 08/24/2023 9:45 AM CDT Narrative Procedure Note Inocente Ojeda MD - 08/24/2023 [facility] [address] [place] [address] Lower Extremity Venous Ultrasound Report Pat.Name: KATINA HERNÁNDEZ Pat.ID: [id number] .Date: 08/24/2023 Exam Time: 9:45:00 AM Study Type:LE Venous Age: 2 1965,58Y Sex: MALE Sonogrphr: Armando Youngblood RVT Pat. Stat.:Inpatient ICD - 9: R60.9 CPT - 4: 41337 Reason for Study: Swelling -Leg, bilateral Procedures: Lower Extremity Venous - Bilateral Race: 1 Visit ID: [id number] ++++++++++++++++++++++++++++++++++++ SUMMARY: ++++++++++++++++++++++++++++++++++++ No evidence of deep or superficial venous thrombosis of either the right or the left lower extremity is seen. ++++++++++++++++++++++++++++++++++++ FINDINGS: ++++++++++++++++++++++++++++++++++++ Procedure: Venous duplex imaging of both lower extremities was performed using color flow and spectral Doppler analysis. The contralateral common femoral vein was also examined. Bilateral: All vessels seen appear patent and compressible. There was spontaneous and phasic flow seen in all the proximal major veins of both lower extremities. Appropriate augmentation with distal compression. No evidence of reflux with proximal compression. Comments: LT GSV not visualized. RT LSV not visualized. Signed 08/24/2023 04:52 PM Inocente Nick MD Georges Cid MD VASCULAR LAB ORDER [place] * (ABNORMAL) SLIDE SCAN HEMATOLOGY (08/23/2023 4:00 PM CDT) Platelet Estimation Adequate platelets Normal, Adequate platelets 08/23/2023 5:09 PM CDT [facility] Anisocytosis Occasional(A ) None 08/23/2023 5:09 PM CDT [facility] Elliptocytes Occasional(A ) None 08/23/2023 5:09 PM CDT [facility] Blood BLOOD SPECIMEN / Unknown Venipuncture / Unknown 08/23/2023 4:00 PM CDT 08/23/2023 4:05 PM CDT Georges Cid MD LAB - HEMATOLOGY O RDERABLES Performing Organization Address City/State/[facility] Co de Phone Number [facility] [address] [place], [place] [id number] * CT ANGIO CHEST ABDOMEN PELVIS (08/23/2023 11:52 AM CDT) Anatomical Region Laterality Modality Chest, Abdomen, Pelvis Computed Tomography 08/23/2023 12:0 7 PM CDT Impressions 08/23/2023 12:47 PM CDT IMPRESSION: 1. This study is positive for acute pulmonary embolism with nonobstructive emboli in the bilateral lower lobes, right upper lobe and right middle lobe pulmonary arterial branches. There is no strain on heart or pulmonary necrosis as a result. The main pulmonary arteries are normal in size. There is no evidence of pulmonary hypertension. 2. Moderate right pleural effusion and subsegmental atelectasis of bilateral lower lobes. There is no evidence of cardiomegaly or congestive heart failure. 3. Extensive subcutaneous emphysema of right lateral wall of the body extending from the neck to the scrotum as well as the left anterior abdominal and pelvic donahue below the level of umbilicus. This is likely due to recent laparoscopic partial right nephrectomy. 4. There is no evidence of active hemorrhage around the right kidney. The density and volume of right perirenal blood is similar to the previous examination as well as between the precontrast and postcontrast images of the current study. 5. There are no other significant findings in the abdomen or pelvis. These findings were discussed in detail with the patient's ICU nurse, Carrie Peña RN, , by Hayes Hampton MD via a closed loop telephone conversation on 08/23/2023 12:44 PM with readback comprehension and verification. > Interpreting Provider: Hayes Hampton MD on 08/23/2023 12:47 PM Narrative 08/23/2023 12:47 PM CDT PROCEDURE: CT ANGIO CHEST ABDOMEN PELVIS DATE/TIME OF EXAM: 08/23/2023 11:53 AM CLINICAL INFORMATION: None relevant/not provided if blank. Indication: D62: Acute posthemorrhagic anemia CONTRAST: IOPAMIDOL 76 % IV SOLN:[address] ANGIOGRAPHY CHEST ABDOMEN PELVIS WITHOUT AND WITH INTRAVENOUS CONTRAST HISTORY: D62: Acute post-hemorrhagic anemia. 58 year old male who has history of BPH is admitted to the ICU for post-op monitoring after embolization for bleeding complications after a partial right nephrectomy. COMPARISON: CT angiography abdomen and pelvis, 08/21/2023 TECHNIQUE: Spiral axial scanning and reconstructed coronal and sagittal imaging of the chest, abdomen and pelvis was performed following the angiography protocol in early and delayed phases after contrast administration. Sagittal and coronal MIP processing of of area angiographic images was performed. Oral contrast was minimally used. Total of 100 mL of Isovue-370 contrast was used. Total exam DLP is 2463 mGy-cm. FINDINGS: CHEST: In the chest, the pulmonary arteries and the pulmonary veins are normally opacified. There are intraluminal filling defects in the right upper lobe and lateral segment of right lower lobe pulmonary arterial branches (series 8, images 208-212 as well as 189) consistent with acute pulmonary embolism. In addition, nonobstructing intraluminal filling defects in the right lower lobe pulmonary arterial branches are also present (series 8, images 273-322). Nonobstructive intraluminal filling defects in the anterior basal segmental branch of left lower lobe (series 8, image 285) is also present. There is no strain on heart. The heart is not enlarged. No coronary artery calcifications is seen. There is a small volume pericardial effusion. There is moderate right pleural effusion. Subpleural subsegmental enhancing atelectasis of bilateral lower lobes is present, right more than left. There is no evidence of pulmonary necrosis. The lung window images demonstrate clear and appearance of the remainder of the upper lobes, right middle lobe and lingula and no evidence of endotracheal lesions or pneumothorax. Extensive subcutaneous emphysema is seen in the lateral and posterior aspect of the patient's chest extending to the base of neck as well as the right more than left anterior abdominal wall extending to the scrotum. The entire aorta is normal from the aortic root to the aortic bifurcation in the precontrast and postcontrast images without atherosclerotic changes, dissection or intraluminal thrombosis. The course and the diameter of the aorta is normal, throughout. The iliac and femoral arteries are normal as well. There is a normal branching pattern of the aortic arch and abdominal aorta. The branches of the aortic arch as well as the celiac trunk, superior mesenteric artery, solitary renal arteries and inferior mesenteric artery are normally opacified without atherosclerotic changes or stenosis. The esophagus and gastroesophageal junction are normal. There is no lymphadenopathy in the chest. The thyroid gland is normal. The bone window images are within normal limits in the chest. There is mild convex levoscoliosis of the thoracolumbar spine. A Schmorl's node in the superior endplates of T8 vertebral body is noted. ABDOMEN AND PELVIS: The post right partial nephrectomy changes are similar to the previous examination. The irregular large perirenal hematoma in the right renal fossa is similar in size and morphology when compared to the previous examination. It has a semilunar appearance with a thickness of 5 cm and the length of about 11.5 cm. The density of the right perirenal blood is about 65 Hounsfield units in the precontrast images, early postcontrast images or delayed images. There is no evidence of active hemorrhage. The right nephrogram is similar to the left nephrogram except for a small area of apparent with shape infarction in the right mid kidney adjacent to the area of partial right nephrectomy. A second area of wedge-shaped hypoattenuation in inferior pole of the right kidney in precontrast images (series 5, image 69, demonstrates enhancement on the delayed images and therefore, is not completely infarcted. The left adrenal nodule measuring 19 mm, has a mean measured density of 3 Hounsfield units in precontrast images and 28 Hounsfield units and delayed images as well as 40 Hounsfield units in early postcontrast images and therefore, it represents a left nonhyperfunctioning adrenal adenoma. The liver, spleen, right adrenal gland, left nephrogram, left kidney and pancreas are within normal limits. Multiple tiny cortical cystic renal lesions of the left kidney are too small to characterize. The gallbladder is unremarkable besides layering hyperdense sludge in its dependent portion. No biliary or pancreatic ductal dilatation is identified. The portal vein and hepatic veins are normally opacified without thrombosis. The inferior vena cava and the iliac veins are unremarkable without evidence of thrombosis. The stomach and duodenum are within normal limits. The appendix is is not discretely identified. There are no secondary signs of appendicitis.. The entire bowel is normal in caliber and wall thickness. No diverticulosis or diverticulitis is identified. There is no evidence of colitis or enteritis. A Singletary catheter is seen in the anterior urinary bladder. The urinary bladder is unremarkable.. The prostate is not enlarged. No ascites, abscess, lymphadenopathy or free air is identified. The bone window images are within normal limits for the patient's age. Procedure Note Hayes Hampton MD - 08/23/2023 PROCEDURE: CT ANGIO CHEST ABDOMEN PELVIS DATE/TIME OF EXAM: 08/23/2023 11:53 AM CLINICAL INFORMATION: None relevant/not provided if blank. Indication: D62: Acute posthemorrhagic anemia CONTRAST: IOPAMIDOL 76 % IV SOLN:[address] ANGIOGRAPHY CHEST ABDOMEN PELVIS WITHOUT AND WITH INTRAVENOUSCONTRAST HISTORY: D62: Acute post-hemorrhagic anemia. 58 year old male who has history of BPH is admitted to the ICU for post-op monitoring after embolization for bleeding complications after a partial right nephrectomy. COMPARISON: CT angiography abdomen and pelvis, 08/21/2023 TECHNIQUE: Spiral axial scanning and reconstructed coronal and sagittal imaging of the chest, abdomen and pelvis was performed following the angiography protocol in early and delayed phases after contrast administration. Sagittal and coronal MIP processing of of areaangiographic images was performed. Oral contrast was minimally used. Total of 100 mLof Isovue-370 contrast was used. Total exam DLP is 2463 mGy-cm. FINDINGS: CHEST: In the chest, the pulmonary arteries and the pulmonary veins arenormally opacified. There are intraluminal filling defects in the right upperlobe and lateral segment of right lower lobe pulmonary arterial branches(series 8, images 208-212 as well as 189) consistent with acute pulmonaryembolism. In addition, nonobstructing intraluminal filling defects in the rightlower lobe pulmonary arterial branches are also present (series 8, images 273-322). Nonobstructive intraluminal filling defects in the anteriorbasal segmental branch of left lower lobe (series 8, image 285) is alsopresent. There is no strain on heart. The heart is not enlarged. No coronaryartery calcifications is seen. There is a small volume pericardial effusion. There is moderate right pleural effusion. Subpleural subsegmentalenhancing atelectasis of bilateral lower lobes is present, right more than left. There is no evidence of pulmonary necrosis. The lung window images demonstrate clear and appearance of the remainder of the upper lobes,right middle lobe and lingula and no evidence of endotracheal lesions or pneumothorax. Extensive subcutaneous emphysema is seen in the lateral and posterior aspect of the patient's chest extending to the base of neck as well asthe right more than left anterior abdominal wall extending to the scrotum. The entire aorta is normal from the aortic root to the aorticbifurcation in the precontrast and postcontrast images without atheroscleroticchanges, dissection or intraluminal thrombosis. The course and the diameter ofthe aorta is normal, throughout. The iliac and femoral arteries are normalas well. There is a normal branching pattern of the aortic arch andabdominal aorta. The branches of the aortic arch as well as the celiac trunk, superior mesenteric artery, solitary renal arteries and inferiormesenteric artery are normally opacified without atherosclerotic changes orstenosis. The esophagus and gastroesophageal junction are normal. There is no lymphadenopathy in the chest. The thyroid gland is normal. The bone window images are within normal limits in the chest. There ismild convex levoscoliosis of the thoracolumbar spine. A Schmorl's node in the superior endplates of T8 vertebral body is noted. ABDOMEN AND PELVIS: The post right partial nephrectomy changes are similar to the previous examination. The irregular large perirenal hematoma in the right renal fossa is similar in size and morphology when compared to the previous examination. It has a semilunar appearance with a thickness of 5 cm andthe length of about 11.5 cm. The density of the right perirenal blood isabout 65 Hounsfield units in the precontrast images, early postcontrast imagesor delayed images. There is no evidence of active hemorrhage. The right nephrogram is similar to the left nephrogram except for asmall area of apparent with shape infarction in the right mid kidney adjacentto the area of partial right nephrectomy. A second area of wedge-shaped hypoattenuation in inferior pole of the right kidney in precontrastimages (series 5, image 69, demonstrates enhancement on the delayed images and therefore, is not completely infarcted. The left adrenal nodule measuring 19 mm, has a mean measured density of3 Hounsfield units in precontrast images and 28 Hounsfield units anddelayed images as well as 40 Hounsfield units in early postcontrast images and therefore, it represents a left nonhyperfunctioning adrenal adenoma. The liver, spleen, right adrenal gland, left nephrogram, left kidney and pancreas are within normal limits. Multiple tiny cortical cystic renal lesions of the left kidney are too small to characterize. Thegallbladder is unremarkable besides layering hyperdense sludge in its dependent portion. No biliary or pancreatic ductal dilatation is identified. The portal vein and hepatic veins are normally opacified without thrombosis. The inferior vena cava and the iliac veins are unremarkable without evidence of thrombosis. The stomach and duodenum are within normal limits. The appendix is isnot discretely identified. There are no secondary signs of appendicitis..The entire bowel is normal in caliber and wall thickness. No diverticulosisor diverticulitis is identified. There is no evidence of colitis orenteritis. A Singletary catheter is seen in the anterior urinary bladder. The urinary bladder is unremarkable.. The prostate is not enlarged. No ascites, abscess, lymphadenopathy or free air is identified. The bone window images are within normal limits for the patient's age. IMPRESSION: 1. This study is positive for acute pulmonary embolism withnonobstructive emboli in the bilateral lower lobes, right upper lobe and right middlelobe pulmonary arterial branches. There is no strain on heart or pulmonary necrosis as a result. The main pulmonary arteries are normal in size.There is no evidence of pulmonary hypertension. 2. Moderate right pleural effusion and subsegmental atelectasis of bilateral lower lobes. There is no evidence of cardiomegaly orcongestive heart failure. 3. Extensive subcutaneous emphysema of right lateral wall of the body extending from the neck to the scrotum as well as the left anterior abdominal and pelvic donahue below the level of umbilicus. This is likelydue to recent laparoscopic partial right nephrectomy. 4. There is no evidence of active hemorrhage around the right kidney.The density and volume of right perirenal blood is similar to the previous examination as well as between the precontrast and postcontrast imagesof the current study. 5. There are no other significant findings in the abdomen or pelvis. These findings were discussed in detail with the patient's ICU nurse,Carrie Peña RN, , by Hayes Hampton MD via a closed loop telephone conversationon 08/23/2023 12:44 PM with readback comprehension and verification. > Interpreting Provider: Hayes Hampton MD on 08/23/2023 12:47 PM Duy De La Cruz MD CT ORDERABLES * TRANSFUSE RED BLOOD CELL LEUKOREDUCED UNIT(S) (08/23/2023 10:49 AM CDT) Berny Paz DO NURSING - BLOOD PROD TRANSFUSION * (ABNORMAL) HGB HCT PANEL (08/22/2023 2:37 PM CDT) Hemoglobin 8.0(L) 12.0 - 17.6 gm/dL 08/22/2023 3:09 PM CDT [facility] Hematocrit 23.5(L) 35.2 - 51.7 % 08/22/2023 3:09 PM CDT [facility] Blood BLOOD SPECIMEN / Unknown Venipuncture / Unknown 08/22/2023 2:37 PM CDT 08/22/2023 2:57 PM CDT Georges Cid MD LAB - HEMATOLOGY O RDERABLES [facility] [address] [place] [address] * TRANSFUSE RED BLOOD CELL LEUKOREDUCED UNIT(S) (08/22/2023 11:56 AM CDT) Georges Cid MD NURSING - BLOOD IL OD TRANSFUSION * PTT (08/22/2023 4:26 AM CDT) PTT 32.0 23.0 - 38.4 sec 08/22/2023 6:05 AM CDT [facility] Blood BLOOD SPECIMEN / Unknown Venipuncture / Unknown 08/22/2023 4:26 AM CDT 08/22/2023 5:50 AM CDT Narrative [facility] - 08/22/2023 6:05 AM CDT Heparin Therapeutic Range for PTT: 69.0 - 110.0 seconds. Edda Ignacio MD LAB - COAGULATION OR DERABLES Performing Organization Address City/[facility] Co de Phone Number [facility] [address] [place] [address] * (ABNORMAL) PT-INR (08/22/2023 4:26 AM CDT) PT 15.4(H) 12.1 - 14.8 sec 08/22/2023 6:05 AM CDT [facility] INR 1.3(H) 0.9 - 1.1 08/22/2023 6:05 AM CDT [facility] Blood BLOOD SPECIMEN / Unknown Venipuncture / Unknown 08/22/2023 4:26 AM CDT 08/22/2023 5:50 AM CDT Narrative [facility] - 08/22/2023 6:05 AM CDT Conventional Warfarin Anticoagulant Therapy: INR Reference Range: 2.0-3.0 Intensive Warfarin Anticoagulant Therapy: INR Reference Range: 2.5-3.5 Edda Ignacio MD LAB - COAGULATION OR DERABLES [facility] [address] [place] [id number] * PATHOLOGY TISSUE EXAM (STL) (08/20/2023 2:28 PM CDT) Case Report Surgical Pathology Report Case: [id number] Authorizing Provider: Georges Cid MD Collected: 08/20/2023 02:28 PM Ordering Location: [facility] Received: 08/21/2023 09:35 AM Pathologist: Isidra Borden MD Specimens: A) - Soft Tissue, final right kidney margin B) - Kidney Nephrec Part, Right renal mass 10:32 AM [facility] Final Diagnosis Kidney, right, final margin, excision (A) - No evidence of malignancy Kidney, right, mass, partial nephrectomy (B) - Clear cell renal cell carcinoma, 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 Operative procedure: partial nephrectomy. 10:32 AM [facility] Gross Description The specimen is identified with patient's name and date of . Received in formalin, specimen A , final right kidney margin is and unoriented 1.6 by 0.8 x 0.3 cm pink brown tissue. Entirely submitted in cassette A1. Received in formalin, specimen B , right renal mass is the 13 g, 5.5 x 3.7 x 3 cm is partial nephrectomy, with loosely adherent perinephric fat. The margin is partially disrupted. The margins are inked as follows: Capsular surface-green, the deep margin-black. Sectioning shows of 4.9 x 3.2 x 3 cm the orange-yellow, partially cystic, heterogenous mass, located 0.1 cm from the closest deep margin, and abutting the capsular surface but not involving the perinephric fat. The remaining kidney parenchyma is monterroso, and otherwise unremarkable. Endo Tech sections submitted as follows: B1-B2-deep margin with partly disrupted deep margin, B3-mass with intact kidney margin, B4-B5-mass with capsular surface and perinephric fat (B5 with normal kidney). LJ 10:32 AM [facility] Microscopic Description Microscopic examination substantiates the above diagnosis. Histologic sections of the kidney show clear cell renal cell carcinoma, focally present at the partially disrupted parenchymal margin of the partial nephrectomy specimen. The separately submitted final margin (part A) shows no evidence of malignancy. 3 10:32 AM [facility] Pathologist Location at [facility] 3 10:32 AM [facility] Disclaimer All histochemical an d/or immunohistochemical results are interpreted with controls that demonstrate appropriate staining reactions before reporting results. Note on use of immunocytochemistry reagents: This test was developed and its performance characteristic determined by [facility], Department of Laboratory Medicine. It has not been cleared or approved by the U.S. Food and Drug Administration (FDA). The FDA has determined that such clearance or approval is not necessary. The test is used for clinical purpose. It should not be regarded as investigational or for research. This laboratory is certified to perform high complexity testing. The performance characteristics of the IHC/TOMER assays have been validated on formalin-fixed paraffin embedded tissues only. The assays have not been validated on decalcified tissues. Results should be interpreted with caution. 3 10:32 AM [facility] Synoptic Report KIDNEY: Nephrectomy KIDNEY: NEPHRECTOMY - All Specimens 8th Edition - Protocol posted: 05/15/2021 SPECIMEN Procedure: Partial nephrectomy Specimen Laterality: Right TUMOR Tumor Focality: Unifocal Tumor Size: Greatest Dimension (Centimeters): 4.9 cm Histologic Type: Clear cell renal cell carcinoma Histologic Grade (WHO / ISUP): G2 (nucleoli conspicuous and eosinophilic at 400x magnification, visible but not prominent at 100x magnification) Tumor Extent: Limited to kidney Sarcomatoid Features: Not identified Rhabdoid Features: Not identified Tumor Necrosis: Not identified MARGINS Margin Status: Carcinoma focally present at partial nephrectomy parenchymal margin, but separately submitted final margin uninvolved REGIONAL LYMPH NODES Regional Lymph Node Status: Not applicable (no regional lymph nodes submitted or found) PATHOLOGIC STAGE CLASSIFICATION (pTNM, AJCC 8th Edition) Reporting of pT, pN, and (when applicable) pM categories is based on information available to the pathologist at the time the report is issued. As per the AJCC (Chapter 1, 8th Ed.) it is the managing physician s responsibility to establish the final pathologic stage based upon all pertinent information, including but potentially not limited to this pathology report. 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 10:32 AM CDT [facility] Embedded Images 10:32 AM CDT [facility] Pathology/Cytology SOFT TISSUE BIOPSY SPECIMEN / Unknown 08/20/2023 2:28 PM CDT 08/21/2023 9:35 AM CDT Comment:Pre-op diagnosis: Diagnosis unknown [R69] Miscellaneous samples (specimen) EXCISION OF LESION OF KIDNEY WITH PARTIAL NEPHRECTOMY / Unknown 08/20/2023 4:00 PM CDT 08/21/2023 9:35 AM CDT Comment:Pre-op diagnosis: Diagnosis unknown [R69] Georges Cid MD LAB - PATHOLOGY/CY TOLOGY ORDERABLES Performing Organization Address City/State/[facility] Co de Phone Number [facility] [address] [place] [address] * ETT LINE PERFORMABLE (08/20/2023 1:08 PM CDT) Narrative Mario Villa APRN-CRNA - 08/20/2023 1:08 PM CDT Mario Villa APRN-CRNA 08/20/2023 1:10 PM Endotracheal Tube Placement: Patient Location: OR. Intubation Event Date/Time: 08/20/2023 12:31 PM Procedure: intubation ([id number]). Procedure Section: Sedation: under general anesthesia. Indications for Airway Management: anesthesia Induction: standard IV Patient Position: sniffing and supine Mask Ventilation: easy with oral airway. Blade Type: Jam Blade Size: 4 Laryngoscopy View: grade 1 (full cords) Intubation Adjuncts: stylet Tube: endotracheal tube Placement: oral Tube type: cuff - inflated Tube Size (MM): 8 Depth of Insertion (CM): 22 Measured From: lips Cuff Inflated With: air Number of Attempts: 1. Placement Verified By: direct visualization, bilateral breath sounds, CO2 monitor and chest auscultation CXR Findings: ETT in proper place. Tube secured with: adhesive tape. Dentition unchanged? Yes Difficult Airway? No. Procedure Start Time: 08/20/2023 12:31 PM. Staff Section Anesthesia Provider: Mario Villa, VASCULAR RADIOLOGIST-LATHE MECHANIC, Performed the procedure Provider #1: Lj Ralph MD. Lj Ralph MD GENERAL ANESTHESIA ORDERABLES * BLOOD TYPE VERIFICATION (08/20/2023 10:05 AM CDT) ABO Rh O POS 08/20/2023 10:44 AM CDT [facility] Blood Bank BLOOD SPECIMEN / Unknown Venipuncture / Unknown 08/20/2023 10:05 AM CDT 08/20/2023 10:10 AM CDT Georges Cid MD LAB - BLOOD BANK O RDERABLES [facility] [address] [phone] * MRI CERVICAL SPINE WO CONTRAST (12/25/2016 1:37 PM CORPORATE GIVING MANAGER) Anatomical Region Laterality Modality Pelvis Other Impressions 12/25/2016 2:54 PM CORPORATE GIVING MANAGER IMPRESSION: 1. 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 This report was approved by Lj Spivey M.D. on 12/25/2016 2:39 PM . I, Dr. AILYN URRUTIA M.D. have personally reviewed and interpreted this examination/study. This report was electronically signed by AILYN URRUTIA M.D. on 12/25/2016 2:54 PM . Narrative 12/25/2016 2:54 PM CORPORATE GIVING MANAGER EXAMINATION: Magnetic resonance imaging (MRI) of the cervical spine without contrast HISTORY: Neck pain TECHNIQUE: MRI of the cervical spine was performed without contrast according to standard protocol. FINDINGS: No prior study is available for comparison at the time of this dictation. The alignment is normal. Vertebral bodies are normal in height without evidence of compression fractures. The marrow signal intensity appears normal. The craniocervical junction and visualized portions of the posterior fossa appear normal. The spinal cord appears normal. The intervertebral discs are normal in height. No soft tissue abnormality is identified. Normal flow voids are identified in the vertebral arteries. C2-3: There is no disc bulge. There is no central canal stenosis. There is no facet osteoarthritis. There is no uncovertebral joint osteoarthritis. There is no neural foraminal stenosis. C3-4: There is no disc bulge. There is no central canal stenosis. There is mild bilateral facet osteoarthritis. There is mild bilateral uncovertebral joint osteoarthritis. There is mild bilateral neural foraminal stenosis. C4-5: There is no disc bulge. There is no central canal stenosis. There is mild bilateral facet osteoarthritis. There is mild bilateral uncovertebral joint osteoarthritis. There is mild bilateral neural foraminal stenosis. C5-6: There is mild disc bulge. There is no central canal stenosis. There is mild bilateral facet osteoarthritis. There is mild bilateral uncovertebral joint osteoarthritis. There is mild bilateral neural foraminal stenosis. C6-7: There is mild disc bulge. There is no central canal stenosis. There is mild bilateral facet osteoarthritis. There is no uncovertebral joint osteoarthritis. There is no neural foraminal stenosis. C7-T1: There is no disc bulge. There is no central canal stenosis. There is no facet osteoarthritis. There is no uncovertebral joint osteoarthritis. There is no neural foraminal stenosis. Procedure Note Ailyn Urrutia MD - 02/12/2018 EXAMINATION: Magnetic resonance imaging (MRI) of the cervical spinewithout contrast HISTORY: Neck pain TECHNIQUE: MRI of the cervical spine was performed without contrastaccording to standard protocol. FINDINGS: No prior study is available for comparison at the time of thisdictation. The alignment is normal. Vertebral bodies are normal in height withoutevidence of compression fractures. The marrow signal intensity appearsnormal. The craniocervical junction and visualized portions of theposterior fossa appear normal. The spinal cord appears normal. The intervertebral discs are normal in height. Nosoft tissue abnormality is identified. Normal flow voids are identified inthe vertebral arteries. C2-3: There is no disc bulge. There is no central canal stenosis. There isno facet osteoarthritis. There is no uncovertebral joint osteoarthritis.There is no neural foraminal stenosis. C3-4: There is no disc bulge. There is no central canal stenosis. There ismild bilateral facet osteoarthritis. There is mild bilateral uncovertebraljoint osteoarthritis. There is mild bilateral neural foraminal stenosis. C4-5: There is no disc bulge. There is no central canal stenosis. There ismild bilateral facet osteoarthritis. There is mild bilateral uncovertebraljoint osteoarthritis. There is mild bilateral neural foraminal stenosis. C5-6: There is mild disc bulge. There is no central canal stenosis. Thereis mild bilateral facet osteoarthritis. There is mild bilateraluncovertebral joint osteoarthritis. There is mild bilateral neuralforaminal stenosis. C6-7: There is mild disc bulge. There is no central canal stenosis. Thereis mild bilateral facet osteoarthritis. There is no uncovertebral jointosteoarthritis. There is no neural foraminal stenosis. C7-T1: There is no disc bulge. There is no central canal stenosis. Thereis no facet osteoarthritis. There is no uncovertebral jointosteoarthritis. There is no neural foraminal stenosis. IMPRESSION IMPRESSION: 1. 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 This report was approved by Lj Spivey M.D. on 12/25/2016 2:39 PM. I, Dr. AILYN URRUTIA M.D. have personally reviewed and interpreted thisexamination/study. This report was electronically signed by AILYN URRUTIA M.D. on 12/25/20162:54 PM . Manuel Martin MD MR ORDERABLES Care Teams Loan Funder Relationship Specialty Start Date End Date Shefali Gavin MD [address] [place] [address] PCP - General Family Medicine 07/15/23
== END 2025-01-25 13:01 | disposition home or self-care (01) ==
PROVIDERS: PCP Family Medicine; Visit Provider Family Medicine
DX: R91.8 Other nonspecific abnormal finding of lung field (principal)
CPT/HCPCS: 71250

== ENCOUNTER 2025-02-27 14:01 | Outpatient (CLI) | payer MEDICARE, MEDICAID, SELFPAY ==
--- NOTE | ~2025-02-27 | CT_ITS ---
CLINICAL INDICATION: Hematuria COMPARISON: Reference is made to a PET/CT dated 09/15/2024. TECHNIQUE: Multiple contiguous axial images of the abdomen were performed without the administration of intravenous contrast The dose-length product (DLP) was 426.55 mGy-cm. Automated exposure control and iterative reconstruction technique were employed. FINDINGS/OBSERVATIONS: Visualized lower thorax: The bilateral lung bases are clear. The heart is of normal size, without pericardial effusion. Small hiatal hernia is present. Liver: The liver demonstrates homogeneous attenuation and is not enlarged. Gallbladder and biliary system: The gallbladder is only minimally distended, and otherwise unremarkable. Pancreas: Limited evaluation of the pancreas secondary to the lack of intravenous contrast. Spleen: The spleen demonstrates homogeneous attenuation and is enlarged measuring 13 cm in longitudinal dimen harpreet. Kidneys: Multiple coils are identified within the right kidney, consistent with patient's history. Postoperative change is also noted within the right kidney with chronic fat necrosis posteriorly and laterally, unchanged in morphology from 09/15/2024. The bilateral ureters are detected only to the level of the pelvic brim (as this was a CT examination of the abdomen only). Adrenal glands: 21 mm focus of decreased attenuation within the left adrenal gland, unchanged from prior consistent w ith an adenoma. The right adrenal gland is unremarkable. Gastrointestinal tract: Fecal stasis within the colon. Vasculature: Unremarkable. Lymph nodes: No pathologically enlarged or morphologically suspicious lymph nodes within the retroperitoneum or at the root of the mesentery. Body wall and musculoskeletal: Age-appropriate degenerative disease within the visualized spine. IMPRESSION: Stable noncontrast enhanced CT examination of the abdomen, when compared with prior PET/CT dated 08/18. Reviewed, dictated and finalized at location A. IMPRESSION: Stable noncontrast enhanced CT examination of the abdomen, when compared with p rior PET/CT dated 09/15/2024.
--- OUTSIDE RECORDS SUMMARY | 2025-02-27 15:42 | XMS_ITS | Clinical Summary ---
Author Organization [facility] Address [address] [place] [address] Care Team Providers Care Game Artist Name Role Phone Shefali Gavin MD Primary Care Provider [phone] Allergies No known active allergies Medications finasteride [...] and heating? Not hard at all 06/01/2023 [facility] [place] of Occupat ional Health - Occupational Stress [...] place to sleep or slept in a fdc (including now)? No 06/01/2023 Housing Stability Vital [...] Vaccine ( - 2023-2 5 season) 2024 RSV Immunization or 60+ Years (1 - 1-dose 75+ series) 2039 Meningococcal B Vaccine Aged Out No l onger eligible based on patient's age to complete this topic Meningococcal Vaccine Aged Out No jaime reji eligible based on patient's age to complete this topic Pneumococcal Vaccine: Pediat rics (0 to 5 Years) and At-Risk Patients (6 to 49 Years) Aged Out No longer eligible b ased on patient's age to complete this topic RSV Immunizations Under 20 Months Aged Out No longer eligible based on patient's age to complete this topic Goals Goal Patient Goal Type Associated Problems Recent Progress Patient-Stated? Author Patient will return to prior living situation and remain independent in ADLs upon discharge from hospital Lifestyle No Cris Bui, RN Insurance MEDICAID WELLC[employer] Advance Directives * Full Code (Latest Code Status on File) Date Activated Date Inactivated Comments 05/31/2023 5:26 PM 06/02/2023 10:20 PM Care Teams Game Artist Relationship Specialty Start Date End Date Shefali Gavin MD [address] [place] [address] PCP - General FAMILY PRACTICE 06/19/23
--- OUTSIDE RECORDS SUMMARY | 2025-02-27 15:42 | XMS_ITS | Clinical Summary ---
Author Organization [facility] Address [address] [facility] [place] [place] [address] Care Team Providers Care Machine Shop Repair Technician Name Role Phone Shefali Gavin MD Primary Care Provider [phone] Source Comments [facility]non-owned Affiliates and Associated Physician Practices is amultiple site organization consisting of ambulatory clinics and hospital sitesin [place], [place], [place] and [place]. This disclosure is being madepursuant to the Care Everywhere program and may not contain all information available regarding this patient. Last updated 18.[facility] Allergies No known active allergies Medications * Be aware that medications may not be up to date on this document. Alwaysverify current medications with the patient. tamsulosin (Flomax) 0.4 MG capsule Take 1 [...] medical care, and heating? Patient declined 06/08/2024 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 Gender Identity Not on file Sexual Orientation [...] of 2) 2014 COVID-19 VACCINE (1 - season) 2024 DEPRESSION SCREENING 11/16/2024 MEDICARE AWV CALENDAR YEAR 2024 INFLUENZA VACCINE (Season Ended) 2025 SCREENING FOR DIABETES 06/17/2027 , 06/16/2024, 06/15/2024, [...] - 26 mg/dL 06/17/2024 1:58 AM CDT [facility] [address] [facility] Creatinine 0.94 0.71 - 1.16 mg/dL 06/17/2024 1:58 AM CDT [facility] Sodium 135(L) 136 - 145 mmol/L 06/17/2024 1:58 AM [facility] Potassium 3.4(L) 3.5 - 4.5 mmol/L 06/17/2024 1:58 AM [facility] Chloride 103 98 - 107 mmol/L 06/17/2024 1:58 AM [facility] CO2 24 22 - 29 mmol/L 06/17/2024 1:58 AM [facility] Glucose 132(H) 70 - 115 mg/dL 06/17/2024 1:58 AM [facility] Calcium 8.6 8.4 - 10.2 mg/dL 06/17/2024 1:58 AM [facility] Anion Gap 8 6 - 16 06/17/2024 1:58 AM [facility] BUN/Creatinine Ratio 23 7 - 23 06/17/2024 1:58 AM [facility] Osmolality Calculated 285 275 - 295 mOsm/kg 06/17/2024 1:58 AM [facility] eGFR by CKD-EPI >90 >=90 mL/min/1.7 3 m2 06/17/2024 1:58 AM [facility] Blood BLOOD SPECIMEN / Unknown Lab Venipuncture / Unknown 06/17/2024 12:11 AM CDT 06/17/2024 1:28 AM [facility] Brenda Peterson MD LAB - CHEMISTRY ORDERABLES Final Result [facility] [address] [place] [address], [facility] [phone] from Last 3 Months or Most Recently Relevant to Health Maintenance Insurance MEDICARE WELLC[employer] SELF PAY NO INSURANCE Member Subscriber Plan / Payer (Ef fective for All Dates) Name:Katina Hernández Member ID:Not on file Relation to Subscriber:Not on file Name:KATINA HERNÁNDEZ Subscriber ID:Not on file (Home) Address: [facility] [address] Payer ID:Not on file Group ID:Not on file Type:Self Pay Address: [place], [place] Advance Directives Documents on File Type Date Recorded 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
--- OUTSIDE RECORDS SUMMARY | 2025-02-27 15:42 | XMS_ITS ---
Author Organization [facility] Address [address] [place] [address] Care Team Providers Care Quality Rn Name Role Phone Shefali Gavin MD Primary Care Provider [phone] Active Problems Problem Noted Date Diagnosed Date [...] 08/23/2023 Gastroesophageal reflux disease 02/12/2016 08/23/2023 Current Treatment and Therapy Plans No current plan information found. Past Treatment and Therapy Plans No past plan information found. Lifetime Dose Tracking * Chemical Lifetime Dose Automatic Entry Manual Entr y Dose Length Product 6,829.36 mGy-cm 6,829.36 mGy-cm 0 mGy-cm
--- OUTSIDE RECORDS SUMMARY | 2025-02-27 15:42 | XMS_ITS | Encounter Summary ---
Author Organization [facility] Address [address] [place] [address] Care Team Providers Care Fish And Game Warden Name Role Phone Shefali Gavin MD Primary Care Provider [phone] Reason for Visit * Reason Comments Med Change Request Encounter Details Date Type Department Care Team (Late st Contact Info) Description 06/17/2024 Refill [facility] SHORT STAY UNIT [address] [place] [phone] Marian Andrade MD [address] [facility] [address] [place] [id number] Med Change Request Social History Tobacco Use [...] medical care, and heating? Patient declined 06/08/2024 [facility] [place] of Occupat ional Health - Occupational Stress [...] place to sleep or slept in a penitentiary (including now)? 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 Answer Date of Assessment Author No 06/08/2024 4:45 PM Jose Luis Arellano RN * Is person blind or have serious difficulty seeing? Answer Date of Assessment Author No 06/08/2024 4:45 PM Jose Luis Arellano RN * Does person have serious difficulty walking/climbing stairs? Answer Date of Assessment Author No 06/08/2024 4:45 PM Jose Luis Arellano RN * Does person have difficulty dressing/bathing? Answer Date of Assessment Author No 06/08/2024 4:45 PM Jose Luis Arellano RN * Does person have difficulty doing errands alone? Answer Date of Assessment Author No 06/08/2024 4:45 PM Jose Luis Arellano RN documented as of this encounter Mental Status * Does person have difficulty concentrating/remembering/making decisions? Answer Entry Date Author No 06/08/2024 4:45 PM CDT Jose Luis Welsh RN documented in this encounter Plan of Treatment Not on file documented as of this encounter Visit Diagnoses Not on filedocumented in this encounter Care Teams Fish And Game Warden Relationship Specialty Start Date End Date Shefali Gavin MD [address] [place] [address] PCP - General Family Medicine 07/15/23 documented as of this encounter
== END 2025-02-27 14:02 | disposition home or self-care (01) ==
PROVIDERS: PCP Family Medicine; Visit Provider Family Medicine
DX: R31.9 Hematuria, unspecified (principal)
CPT/HCPCS: 74150

== ENCOUNTER 2025-08-09 09:48 | Outpatient (CLI) | payer MEDICARE, MEDICAID, SELFPAY ==
--- OUTSIDE RECORDS SUMMARY | 2025-08-09 10:04 | XMS_ITS | Encounter Summary ---
Author Organization [facility] Address [address] [facility] [place] [address] Care Team Providers Care Sanitary Engineer Name Role Phone Shefali Gavin MD Primary Care Provider [phone] Reason for Visit * Reason Comments Med Change Request Encounter Details Date Type Department Care Team (Late st Contact Info) Description 06/17/2024 Refill [facility] SHORT STAY UNIT [address] [place] [phone] Marian Andrade MD [address] [facility] [address] [place] [id number] Med Change Request Social History Tobacco Use [...] medical care, and heating? Patient declined 06/08/2024 [facility] [place] of Occupat ional Health - Occupational Stress [...] place to sleep or slept in a residential (including now)? 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
--- OUTSIDE RECORDS SUMMARY | 2025-08-09 10:04 | XMS_ITS | Clinical Summary ---
Author Organization [facility] Address [address] [place] [address] Care Team Providers Care Telecommunications Consultant Name Role Phone Shefali Gavin MD Primary Care Provider [phone] Allergies No known active allergies Medications finasteride [...] and heating? Not hard at all 06/01/2023 [facility] [place] of Occupat ional Health - Occupational Stress [...] or slept in a fci (including now)? No 06/01/2023 Housing Stability Vital [...] Td Vaccines ( 1 - Tdap) 1983 Pneumococcal Vaccine: 50+ Ye ars (1 of 1 - PCV) 2014 Zoster Vaccines (1 of 2) 2014 COVID-19 Vaccine ( - 2023-2 5 season) 2025 RSV Immunization or 60+ Years (1 - [...] 5:26 PM 06/02/2023 10:20 PM Care Teams Telecommunications Consultant Relationship Specialty Start Date End Date Shefali Gavin MD [address] [place] [address] PCP - General FAMILY PRACTICE 06/19/23
--- OUTSIDE RECORDS SUMMARY | 2025-08-09 10:04 | XMS_ITS ---
Author Organization [facility] Address [address] [place] [address] Care Team Providers Care Circulation Assistant Name Role Phone Shefali Gavin MD Primary Care Provider [phone] Active Problems Problem Noted Date Diagnosed Date [...]
--- OUTSIDE RECORDS SUMMARY | 2025-08-09 10:05 | XMS_ITS | Clinical Summary ---
Author Organization [facility] Address [address] [facility] [place] [address] Care Team Providers Care Solar Installation Foreman Name Role Phone Shefali Gavin MD Primary Care Provider [phone] [facility],non-owned Affiliates and Associated Physician Practices is amultiple site organization consisting of ambulatory clinics and hospital sitesin [place], [place], [place] and [place]. This disclosure is being madepursuant to the Care Everywhere program and may not contain all information available regarding this patient. Last updated 18.[facility] Allergies No known active allergies Medications * [...] medical care, and heating? 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 Gender Identity Not on file Sexual Orientation [...] 2014 ZOSTER VACCINE (1 of 2) 2014 Respiratory Syncytial Virus (RSV) Vaccine Pt: or over 60 yrs (1 - Risk 60-74 years 1-dose series) 2024 DEPRESSION SCREENING 11/16/2024 MEDICARE AWV CALENDAR YEAR 2024 COVID-19 VACCINE ( season) 2025 INFLUENZA VACCINE (#1) 2025 SCREENING FOR DIABETES 06/17/2027 , 06/16/2024, 06/15/2024, Additional history exists HEPATITIS B VACCINE Aged Out No longe [...] - 26 mg/dL 06/17/2024 1:58 AM CDT [facility] Creatinine 0.94 0.71 - 1.16 mg/dL 06/17/2024 1:58 AM [facility] Sodium 135(L) 136 - 145 mmol/L 06/17/2024 1:58 AM [facility] Potassium 3.4(L) 3.5 - 4.5 mmol/L 06/17/2024 1:58 AM [facility] Chloride 103 98 - 107 mmol/L 06/17/2024 1:58 AM [facility] CO2 24 22 - 29 mmol/L 06/17/2024 1:58 AM [facility] Glucose 132(H) 70 - 115 mg/dL 06/17/2024 1:58 AM [facility] Calcium 8.6 8.4 - 10.2 mg/dL 06/17/2024 1:58 AM [facility] Anion Gap 8 6 - 16 06/17/2024 1:58 AM [facility] BUN/Creatinine Ratio 23 7 - 23 06/17/2024 1:58 AM [facility] Osmolality Calculated 285 275 - 295 mOsm/kg 06/17/2024 1:58 AM [facility] eGFR by CKD-EPI >90 >=90 mL/min/1.7 3 m2 06/17/2024 1:58 AM [facility] Blood BLOOD SPECIMEN / Unknown Lab Venipuncture / Unknown 06/17/2024 12:11 AM T 06/17/2024 1:28 AM [facility] Brenda Peterson MD LAB - CHEMISTRY ORDERABLES Final Result Performing Organization Address [facility]/State/ZIP Co de Phone Number [facility] [address] [place] [address], [facility] [phone] from Last 3 Months or Most Recently Relevant to Health Maintenance Insurance MEDICARE WELLCARE SELF PAY NO INSURANCE Member Subscriber Plan / Payer (Ef fective for All Dates) Name:Katina Hernández Member ID:Not on file Relation to Subscriber:Not on file Name:KATINA HERNÁNDEZ Subscriber ID:Not on file (Home) Address: [address] [place], [place] [id number] Payer ID:Not on file Group ID:Not on file Type:Self Pay Address: [place], [place] Advance Directives Documents on File Type Date Recorded 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
[2025-08-09 10:19] LABS: Hematocrit 42.7 % (42.0-52.0); Hemoglobin 14.5 g/dL (14.0-18.0); Immature Granulocyte Percent A 0.5 % (0-0.5); Lymphocytes Absolute Auto 1.83 K/mm3 (0.9-3.2); Mean Corpuscular HGB Conc 34.0 g/dl (32-36); Mean Corpuscular Hemoglobin 30.5 pg (26-34); Mean Corpuscular Volume 89.9 fl (80-100); Nucleated Red Blood Cells Absolute Auto 0.000 K/mm3 (0.0-0.012); Nucleated Red Blood Cells Perc 0.0 % (0.0-0.2); Platelet Count Result 271 k/mm3 (150-375); Red Blood Count 4.75 M/mm3 (4.6-6.20); White Blood Count 6.5 K/mm3 (4.5-10.0)
[2025-08-09 10:36] LABS: Hemoglobin A1C 5.8 % (<5.7)
--- OUTSIDE RECORDS SUMMARY | 2025-08-09 10:37 | XMS_ITS | Encounter Summary ---
Author Organization [facility] Address [address] [place] [address] Care Team Providers Care Desulphuring Operator Name Role Phone Shefali Gavin MD Primary Care Provider [phone] Reason for Visit * Reason Comments Med Change Request Encounter Details Date Type Department Care Team (Late st Contact Info) Description 06/17/2024 Refill [facility] SHORT STAY UNIT [address] [place] [phone] Marian Andrade MD [address] [facility] [address] [place] [phone] Med Change Request Social History Tobacco Use [...] medical care, and heating? 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
--- OUTSIDE RECORDS SUMMARY | 2025-08-09 10:37 | XMS_ITS ---
Author Organization [facility] Address [address] [place] [address] Care Team Providers Care Product Safety Manager Name Role Phone Shefali Gavin MD Primary Care Provider [phone] Active Problems Problem Noted Date Diagnosed Date [...]
--- OUTSIDE RECORDS SUMMARY | 2025-08-09 10:37 | XMS_ITS | Clinical Summary ---
Author Organization [facility] [employer] Address [address] [place] [address] Care Team Providers Care Machine Cutter Name Role Phone Shefali Gavin MD Primary Care Provider [phone] Source Comments [facility] [employer],non-owned Affiliates and Associated Physician Practices is amultiple site organization consisting of ambulatory clinics and hospital sitesin [place], [place], [place] and [place]. This disclosure is being madepursuant to the Care Everywhere program and may not contain all information available regarding this patient. Last updated 18.[facility] [employer] Allergies No known active allergies Medications * [...] medical care, and heating? 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 Creatinine 0.94 0.71 - 1.16 mg/dL 06/17/2024 1:58 AM [facility] Sodium 135(L) 136 - 145 mmol/L 06/17/2024 1:58 AM [facility] Potassium 3.4(L) 3.5 - 4.5 mmol/L 06/17/2024 1:58 AM [facility] Chloride 103 98 - 107 mmol/L 06/17/2024 1:58 AM [facility] CO2 24 22 - 29 mmol/L 06/17/2024 1:58 AM [facility] Glucose 132(H) 70 - 115 mg/dL 06/17/2024 1:58 AM [facility] Calcium 8.6 8.4 - 10.2 mg/dL 06/17/2024 1:58 AM [facility] Anion Gap 8 6 - 16 06/17/2024 1:58 AM [facility] BUN/Creatinine Ratio 23 7 - 23 06/17/2024 1:58 AM [facility] Osmolality Calculated 285 275 - 295 mOsm/kg 06/17/2024 1:58 AM [facility] eGFR by CKD-EPI >90 >=90 mL/min/1.7 3 m2 06/17/2024 1:58 AM [facility] Blood BLOOD SPECIMEN / Unknown Lab Venipuncture / Unknown 06/17/2024 12:11 AM T 06/17/2024 1:28 AM [facility] Brenda Peterson MD LAB - CHEMISTRY ORDERABLES Final Result Performing Organization Address [facility]/State/ZIP Co de Phone Number [facility] [address] [place] [address], [facility] [phone] from Last 3 Months or Most Recently Relevant to Health Maintenance Insurance MEDICARE [employer] SELF PAY NO INSURANCE Member Subscriber Plan / Payer (Ef fective for All Dates) Name:Katina Hernández Member ID:Not on file Relation to Subscriber:Not on file Name:KATINA HERNÁNDEZ Subscriber ID:Not on file (Home) Address: [address] [place], [place] [id number] Payer ID:Not on file Group ID:Not on file Type:Self Pay Address: [place], [place] Advance Directives Documents on File Type Date Recorded Patient Director Trading Expl anation Adv Directive/Living Will/POA 08/20/2023 * Full Code (Latest Code Status on File) Date Activated Date Inactivated Comments 06/08/2024 4:09 PM 06/17/2024 5:06 PM * Full Code Date Activated Date Inactivated Comments 08/20/2023 5:32 PM 09/01/2023 12:41 PM Care Teams Machine Cutter Relationship Specialty Start Date End Date Shefali Gavin MD [address] [place] [address] PCP - General Family Medicine 07/15/23
[2025-08-09 10:38] LABS: Alanine Aminotransferase 21 U/L (6-50); Albumin Level 4.3 g/dL (3.5-5.1); Alkaline Phosphatase 88 U/L (38-126); Anion Gap 6 mmol/L (4-12); Aspartate Amino Transferase 25 U/L (17-59); Bilirubin,Total 0.7 mg/dL (0.2-1.3); Blood Urea Nitrogen 14 mg/dL (9-20); Calcium 9.9 mg/dL (8.4-10.2); Carbon Dioxide 28 mmol/L (22-30); Chloride 102 mmol/L (98-107); Estimated Glomerular Filt Rate > 60; Glucose 101 mg/dL (65-110); Potassium 4.5 mmol/L (3.4-5.0); Sodium 136 mmol/L (137-145); Total Protein 7.7 g/dL (6.3-8.2)
[2025-08-09 10:39] LABS: Cholesterol 232 mg/dL (0-200); HDL Direct 43 mg/dL; Triglycerides 250 mg/dL (<150)
[2025-08-09 10:56] LABS: Free T4 Free Thyroxine 0.82 ng/dL (0.78-2.19)
[2025-08-09 11:14] LABS: Thyroid Stimulating Hormone 2.120 uIU/mL (0.465-4.680)
== END 2025-08-09 09:49 | disposition home or self-care (01) ==
PROVIDERS: PCP Family Medicine; Visit Provider Student in an Organized Health Care Education/Training Program
DX: R73.03 Prediabetes (principal); Z13.220 Encounter for screening for lipoid disorders; R91.1 Solitary pulmonary nodule; R53.83 Other fatigue; Z83.3 Family history of diabetes mellitus
CPT/HCPCS: 36415; 80053; 80061; 83036; 84439; 84443; 85025